=== PATIENT | male | born 1950 | race Caucasian/White ===

== ENCOUNTER 2017-03-04 11:50 | Inpatient (IN) | payer MEDICAID, OTHER ==
[2017-03-04 16:40] LABS: BASOPHILS # (AUTO) 0.1 X10^3/uL (0.0-0.1); BASOPHILS % (AUTO) 0.8 % (0.2-1.0); EOSINOPHILS # (AUTO) 0.5 x10^3/uL (0.0-0.2); EOSINOPHILS % (AUTO) 2.8 % (0.9-2.9); HEMATOCRIT 28.8 % (42.0-54.0); HEMOGLOBIN 9.8 g/dL (13.5-18.0); LYMPHOCYTES # (AUTO) 2.5 X10^3/uL (1.3-2.9); LYMPHOCYTES % (AUTO) 15.1 % (21.0-51.0); MEAN CORPUSCULAR VOLUME 88.4 fL (80.0-100.0); MONOCYTES # (AUTO) 1.8 x10^3/uL (0.3-0.8); MONOCYTES % (AUTO) 10.6 % (0.0-13.0); NEUTROPHILS # (AUTO) 11.8 x10^3/uL (2.2-4.8); NEUTROPHILS % (AUTO) 70.7 % (42.0-75.0); PLATELET COUNT 241 X10^3/uL (150.0-450.0); RED BLOOD COUNT 3.26 X10^6/uL (4.7-6.0); RED CELL DISTRIBUTION WIDTH 15.2 % (11.6-16.5)
[2017-03-04 16:50] LABS: ALANINE AMINOTRANSFERASE 65 Units/L (12-78); ALKALINE PHOSPHATASE 57 Units/L (46-116); ASPARTATE AMINO TRANSFERASE 86 Units/L (15-37); BLOOD UREA NITROGEN 57 mg/dL (7-18); CALCIUM 8.8 mg/dL (8.5-10.1); CARBON DIOXIDE 22.8 mmol/L (21-32); CHLORIDE 104 mmol/L (98-107); COR CA(FOR HYPOALB) 9.6 mg/dL (8.5-10.1); CREATININE 2.89 mg/dL (0.70-1.30); GLUCOSE 108 mg/dL (65-99); SODIUM 137 mmol/L (136-145); TOTAL PROTEIN 7.7 g/dL (6.4-8.2); eGFR BLACK RACES 28 (>60); eGFR NON BLACK RACES 23 (>60)
[2017-03-04 17:02] VITALS: BMI 39.6
[2017-03-04] MEDS: NS 1000 ML 1,000 ML IV SCH (17:02)
[2017-03-04 17:11] LABS: HYPOCHROMASIA 1+; MICROCYTOSIS 1+; PLATELET MORPHOLOGY COMMENT NORMAL (NORMAL)
[2017-03-04 17:13] LABS: WHITE BLOOD COUNT 20.1 X10^3/uL (3.6-10.0)
--- NOTE | 2017-03-04 17:27 | RAD ---
HISTORY: Congestion, cough Study: Single view chest Comparison: 11/07/2015 Findings: Single portable view is submitted, limited by patient rotation. Lung volumes are reduced. The lungs are clear without consolidation, effusion or pneumothorax. The cardiac and mediastinal contours are within normal limits. The soft tissues are unremarkable. IMPRESSION: 1. Negative portable chest radiograph. Reported By:
[2017-03-04] MEDS ORDERED: DUONEB 0.5 MG/3 MG NEB PRN (17:37)
[2017-03-04] MEDS ORDERED: PROVENTIL NEB TX 0.083% 2.5MG/ 3ML NEB PRN (17:54)
[2017-03-04] MEDS: LEVAQUIN PREMIX IV 500 MG 500 MG/100 ML BAG IV SCH (18:13)
[2017-03-04] MEDS: DUONEB 0.5 MG/3 MG NEB SCH (18:17)
[2017-03-04] MEDS: PHENOBARBITAL TAB 30 MG (32.4MG) PO SCH (20:19)
[2017-03-04] MEDS: NAMENDA TAB 10 MG PO SCH (20:19)
[2017-03-04] MEDS: ZITHROMAX INJ 500 MG VIAL 500 MG in NS 250 ML IV 250 ML IV SCH (20:19)
[2017-03-05] MEDS: DUONEB 0.5 MG/3 MG NEB SCH ×4 (00:50→17:28)
[2017-03-05] MEDS: NS 1000 ML 1,000 ML IV SCH ×3 (05:59→22:28)
[2017-03-05 06:00] LABS: BILIRUBIN,URINE NEGATIVE (NEGATIVE); BLOOD/HEMOGLOBIN,URINE 3+ (NEGATIVE); GLUCOSE, URINE NEGATIVE (NEGATIVE); KETONES,URINE NEGATIVE (NEGATIVE); LEUKOCYTE ESTERASE ,URINE 3+ (NEGATIVE); NITRITES,URINE NEGATIVE (NEGATIVE); PROTEIN,URINE 2+ (NEGATIVE); UROBILINOGEN,URINE NORMAL (NORMAL)
[2017-03-05 06:12] LABS: APPEARANCE,URINE SLIGHTLY HAZY (CLEAR); BACTERIA,URINE TRACE /HPF (NEGATIVE); COLOR,URINE YELLOW (YELLOW); SQUAMOUS EPITHELIAL CELL,UR FEW /HPF (NEGATIVE)
[2017-03-05 06:13] LABS: OTHER CRYSTALS,URINE MODERATE /HPF (NEGATIVE)
[2017-03-05 06:27] LABS: BASOPHILS # (AUTO) 0.1 X10^3/uL (0.0-0.1); BASOPHILS % (AUTO) 0.9 % (0.2-1.0); EOSINOPHILS # (AUTO) 0.3 x10^3/uL (0.0-0.2); EOSINOPHILS % (AUTO) 2.8 % (0.9-2.9); HEMATOCRIT 28.2 % (42.0-54.0); HEMOGLOBIN 9.6 g/dL (13.5-18.0); LYMPHOCYTES # (AUTO) 1.8 X10^3/uL (1.3-2.9); LYMPHOCYTES % (AUTO) 19.3 % (21.0-51.0); MEAN CORPUSCULAR HEMOGLOBIN 29.8 pg (27.0-34.0); MEAN CORPUSCULAR HGB CONC 33.9 g/dL (33.0-35.0); MEAN CORPUSCULAR VOLUME 87.9 fL (80.0-100.0); MEAN PLATELET VOLUME 8.7 fL (7.4-11.0); MONOCYTES # (AUTO) 1.1 x10^3/uL (0.3-0.8); MONOCYTES % (AUTO) 12.1 % (0.0-13.0); NEUTROPHILS % (AUTO) 64.9 % (42.0-75.0); PLATELET COUNT 296 X10^3/uL (150.0-450.0); RED BLOOD COUNT 3.21 X10^6/uL (4.7-6.0); RED CELL DISTRIBUTION WIDTH 14.6 % (11.6-16.5); WHITE BLOOD COUNT 9.3 X10^3/uL (3.6-10.0)
[2017-03-05 06:58] LABS: ALANINE AMINOTRANSFERASE 53 Units/L (12-78); ALBUMIN 2.6 g/dL (3.4-5.0); ALKALINE PHOSPHATASE 51 Units/L (46-116); ASPARTATE AMINO TRANSFERASE 62 Units/L (15-37); BLOOD UREA NITROGEN 47 mg/dL (7-18); CALCIUM 8.4 mg/dL (8.5-10.1); CARBON DIOXIDE 22.9 mmol/L (21-32); CHLORIDE 108 mmol/L (98-107); COR CA(FOR HYPOALB) 9.5 mg/dL (8.5-10.1); CREATININE 2.26 mg/dL (0.70-1.30); GLUCOSE 105 mg/dL (65-99); SODIUM 140 mmol/L (136-145); eGFR BLACK RACES 37 (>60); eGFR NON BLACK RACES 31 (>60)
[2017-03-05] MEDS: ZITHROMAX INJ 500 MG VIAL 500 MG in NS 250 ML IV 250 ML IV SCH (08:25)
[2017-03-05] MEDS: NAMENDA TAB 10 MG PO SCH ×2 (08:26→20:22)
[2017-03-05] MEDS: PHENOBARBITAL TAB 30 MG (32.4MG) PO SCH ×2 (08:26→20:22)
[2017-03-05] MEDS: LEVAQUIN PREMIX IV 500 MG 500 MG/100 ML BAG IV SCH (08:26)
[2017-03-05] MEDS ORDERED: ULTRAM PO PRN (12:46)
[2017-03-05] MEDS ORDERED: QUETIAPINE FUMARATE PO SCH (13:00)
[2017-03-05] MEDS ORDERED: TAMSULOSIN HCL 0.4 MG PO SCH (13:00)
[2017-03-05] MEDS ORDERED: NAMENDA TAB 10 MG PO SCH (13:00)
[2017-03-05] MEDS ORDERED: TYLENOL 500 MG TAB EXTRA STRENGTH PO SCH (13:00)
[2017-03-05] MEDS ORDERED: CHOLECALCIFEROL 4000 UNIT PO SCH (13:00)
[2017-03-05] MEDS ORDERED: DUONEB 0.5 MG/3 MG NEB SCH (13:00)
[2017-03-05] MEDS ORDERED: ZOLOFT PO ONE (15:21)
[2017-03-05] MEDS: TRICOR TAB 145 MG PO SCH (15:36)
[2017-03-05] MEDS: ZOLOFT PO SCH (15:36)
[2017-03-05] MEDS: SYNTHROID 125 mcg TAB PO SCH (15:36)
[2017-03-05] MEDS: MIRALAX POWDER (1 DOSE 17GM) PO SCH (15:55)
[2017-03-05] MEDS ORDERED: PHENOBARBITAL TAB 30 MG (32.4MG) PO SCH (17:00)
[2017-03-05] MEDS: ZOCOR TAB 10 MG PO SCH (20:22)
[2017-03-05] MEDS: DESYREL PO SCH (20:22)
[2017-03-05] MEDS: FLOMAX PO SCH (20:22)
[2017-03-05] MEDS ORDERED: PATIENT'S HOME MEDICATION (Trazodone Hcl [Trazodone Hcl] 100 MG) PO SCH (21:00)
[2017-03-05] MEDS ORDERED: ZOFRAN INJ 4 MG VIAL IVP PRN (21:14)
[2017-03-06] MEDS ORDERED: ROBITUSSIN DM PO PRN (00:02)
[2017-03-06] MEDS: DUONEB 0.5 MG/3 MG NEB SCH ×4 (00:55→17:01)
[2017-03-06 06:08] LABS: ALBUMIN 2.6 g/dL (3.4-5.0); CALCIUM 8.3 mg/dL (8.5-10.1); COR CA(FOR HYPOALB) 9.4 mg/dL (8.5-10.1); CREATININE 1.68 mg/dL (0.70-1.30); TOTAL PROTEIN 7.1 g/dL (6.4-8.2)
[2017-03-06 06:23] LABS: BASOPHILS # (AUTO) 0.1 X10^3/uL (0.0-0.1); BASOPHILS % (AUTO) 0.5 % (0.2-1.0); EOSINOPHILS # (AUTO) 0.2 x10^3/uL (0.0-0.2); EOSINOPHILS % (AUTO) 1.9 % (0.9-2.9); HEMATOCRIT 27.6 % (42.0-54.0); HEMOGLOBIN 9.5 g/dL (13.5-18.0); LYMPHOCYTES # (AUTO) 1.3 X10^3/uL (1.3-2.9); LYMPHOCYTES % (AUTO) 13.3 % (21.0-51.0); MEAN CORPUSCULAR HEMOGLOBIN 30.2 pg (27.0-34.0); MEAN CORPUSCULAR HGB CONC 34.5 g/dL (33.0-35.0); MEAN CORPUSCULAR VOLUME 87.4 fL (80.0-100.0); MEAN PLATELET VOLUME 9.4 fL (7.4-11.0); MONOCYTES # (AUTO) 0.9 x10^3/uL (0.3-0.8); MONOCYTES % (AUTO) 9.7 % (0.0-13.0); NEUTROPHILS # (AUTO) 7.3 x10^3/uL (2.2-4.8); NEUTROPHILS % (AUTO) 74.6 % (42.0-75.0); PLATELET COUNT 334 X10^3/uL (150.0-450.0); RED BLOOD COUNT 3.16 X10^6/uL (4.7-6.0); RED CELL DISTRIBUTION WIDTH 15.1 % (11.6-16.5); WHITE BLOOD COUNT 9.8 X10^3/uL (3.6-10.0)
[2017-03-06 06:54] LABS: PLATELET MORPHOLOGY COMMENT NORMAL (NORMAL)
[2017-03-06] MEDS: NS 1000 ML 1,000 ML IV SCH ×3 (07:18→22:29)
[2017-03-06] MEDS ORDERED: ZOLOFT PO ONE (08:10)
[2017-03-06] MEDS: MIRALAX POWDER (1 DOSE 17GM) PO SCH (08:34)
[2017-03-06] MEDS: NAMENDA TAB 10 MG PO SCH ×2 (08:34→21:17)
[2017-03-06] MEDS: LEVAQUIN PREMIX IV 500 MG 500 MG/100 ML BAG IV SCH (08:34)
[2017-03-06] MEDS: FLOMAX PO SCH ×2 (08:34→21:17)
[2017-03-06] MEDS: ZITHROMAX INJ 500 MG VIAL 500 MG in NS 250 ML IV 250 ML IV SCH (08:35)
[2017-03-06] MEDS: VITAMIN D3 PO SCH (08:35)
[2017-03-06] MEDS: SYNTHROID 125 mcg TAB PO SCH (08:35)
[2017-03-06] MEDS: TRICOR TAB 145 MG PO SCH (08:35)
[2017-03-06] MEDS: PHENOBARBITAL TAB 30 MG (32.4MG) PO SCH ×2 (08:35→21:17)
[2017-03-06] MEDS: ZOLOFT PO SCH (08:36)
[2017-03-06] MEDS ORDERED: BUTT CREAM (COMPOUND) TOP PRN (12:35)
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
--- NOTE | 2017-03-06 14:09 | PCM.PROG ---
Progress Note - Progress Note for Day of Date: 03/05/17 - Subjective Subjective: MORE AWAKE AND ALERT, PT CO SUPRAPUBIC TENDERNESS. STATES HE'S "PEEING OK". CONTINUED DIFFUSE WHEEZES, WILL CONTINUE IV ATBX, RESP THERAPY. REPEAT AM LABS - Past Medical Family Social History Past Med/Fam/Surg Hx: No changes since H&P Allergies: Allergies No Known Drug Allergies Allergy (Verified 03/04/17 15:54) - Review of Systems ROS: No change since H&P ( DICTATED BY) - Vital Signs and I&O's Vital Signs: Temperature 97.9 F Pulse Rate [Radial] 70 Pulse Rate 76 Respiratory Rate 20 Blood Pressure [Left Arm] 188/79 Blood Pressure [Right Arm] 123/60 Blood Pressure 119/60 O2 Sat by Pulse Oximetry 96 Intake and Output: Intake & Output 03/04/17 03/05/17 03/06/17 03/07/17 11:59 11:59 11:59 11:59 Intake Total 200 1155 Output Total 300 Balance 200 855 - Physical Exam Oriented: Person Eyes: Normal Ear: Normal Nose: Normal Throat: Normal Cardiovascular: Normal : Normal Auscultation: Bowel Sounds: Normal Tenderness: Normal, Suprapubic Musculoskeletal: Back:Lumbar, Motor Deficit, Sensory Deficit Mood Description: Calm Speech Pattern: Clear, Appropriate - Laboratory and Diagnostics Result Diagrams: 03/06/17 03:45 03/06/17 03:45 Labs: 03/04/17 16:18 Blood Blood Culture - Preliminary 03/04/17 16:18 Blood Blood Culture - Preliminary 03/05/17 05:35 Urine,Clean Catch Urine Culture - Preliminary 03/04/17 18:28 Sputum - Expectorated Sputum Sputum Culture - Final 03/04/17 18:28 Sputum - Expectorated Sputum - Final Laboratory WBC 9.8 X10^3/uL (3.6-10.0) 03/06/17 03:45 RBC 3.16 X10^6/uL (4.7-6.0) L 03/06/17 03:45 Hgb 9.5 g/dL (13.5-18.0) L 03/06/17 03:45 Hct 27.6 % (42.0-54.0) L 03/06/17 03:45 MCV 87.4 fL (80.0-100.0) 03/06/17 03:45 MCH 30.2 pg (27.0-34.0) 03/06/17 03:45 MCHC 34.5 g/dL (33.0-35.0) 03/06/17 03:45 RDW 15.1 % (11.6-16.5) 03/06/17 03:45 Plt Count 334 X10^3/uL (150.0-450.0) 03/06/17 03:45 Plt Count Comment Adequate (ADEQUATE) 03/06/17 03:45 MPV 9.4 fL (7.4-11.0) 03/06/17 03:45 Neut % 74.6 % (42.0-75.0) 03/06/17 03:45 Lymph % 13.3 % (21.0-51.0) L 03/06/17 03:45 [place] % 9.7 % (0.0-13.0) 03/06/17 03:45 Eos % 1.9 % (0.9-2.9) 03/06/17 03:45 Baso % 0.5 % (0.2-1.0) 03/06/17 03:45 Neut # 7.3 x10^3/uL (2.2-4.8) H 03/06/17 03:45 Lymph # 1.3 X10^3/uL (1.3-2.9) 03/06/17 03:45 [place] # 0.9 x10^3/uL (0.3-0.8) H 03/06/17 03:45 Eos # 0.2 x10^3/uL (0.0-0.2) 03/06/17 03:45 Baso # 0.1 X10^3/uL (0.0-0.1) 03/06/17 03:45 Absolute Nucleated RBC 0.0 /100WBC 03/06/17 03:45 Total Counted 100 03/06/17 03:45 Neutrophils % (Manual) 73 % (39-76) 03/06/17 03:45 Lymphocytes % (Manual) 22 % (13-43) 03/06/17 03:45 Monocytes % (Manual) 5 % (4-9) 03/06/17 03:45 Plt Morphology Comment Normal (NORMAL) 03/06/17 03:45 RBC Morphology Normal (NORMAL) 03/06/17 03:45 Hypochromasia 1+ A 03/04/17 16:18 Microcytosis 1+ A 03/04/17 16:18 Sodium 141 mmol/L (136-145) 03/06/17 03:45 Corrected Sodium 142 mmol/L (136-145) 03/06/17 03:45 Potassium 3.9 mmol/L (3.5-5.1) 03/06/17 03:45 Chloride 107 mmol/L (98-107) 03/06/17 03:45 Carbon Dioxide 25.0 mmol/L (21-32) 03/06/17 03:45 BUN 28 mg/dL (7-18) H 03/06/17 03:45 Creatinine 1.68 mg/dL (0.70-1.30) H 03/06/17 03:45 Est GFR (MDRD) Af Amer 53 (>60) L 03/06/17 03:45 Est GFR (MDRD) Non-Af 44 (>60) L 03/06/17 03:45 Glucose 136 mg/dL (65-99) H 03/06/17 03:45 Calcium 8.3 mg/dL (8.5-10.1) L 03/06/17 03:45 Corrected Calcium 9.4 mg/dL (8.5-10.1) 03/06/17 03:45 Total Bilirubin 0.40 mg/dL (0.2-1.0) 03/06/17 03:45 AST 49 Units/L (15-37) H 03/06/17 03:45 ALT 49 Units/L (12-78) 03/06/17 03:45 Alkaline Phosphatase 51 Units/L (46-116) 03/06/17 03:45 Total Protein 7.1 g/dL (6.4-8.2) 03/06/17 03:45 Albumin 2.6 g/dL (3.4-5.0) L 03/06/17 03:45 Globulin 4.5 g/dL (2.5-4.5) 03/06/17 03:45 Albumin/Globulin Ratio 0.6 Ratio (1.1-2.1) L 03/06/17 03:45 Specimen Type Clean catch urine 03/05/17 05:35 Urine Color Yellow (YELLOW) 03/05/17 05:35 Urine Appearance Slightly hazy (CLEAR) 03/05/17 05:35 Urine pH 6.0 (5.0 - 8.0) 03/05/17 05:35 Ur Specific [place] 1.010 (1.000-1.030) 03/05/17 05:35 Urine Protein 2+ (NEGATIVE) 03/05/17 05:35 Urine Glucose (UA) Negative (NEGATIVE) 03/05/17 05:35 Urine Ketones Negative (NEGATIVE) 03/05/17 05:35 Urine Occult Blood 3+ (NEGATIVE) 03/05/17 05:35 Urine Nitrite Negative (NEGATIVE) 03/05/17 05:35 Urine Bilirubin Negative (NEGATIVE) 03/05/17 05:35 Urine Urobilinogen Normal (NORMAL) 03/05/17 05:35 Ur Leukocyte Esterase 3+ (NEGATIVE) 03/05/17 05:35 Urine RBC 5-10 /HPF (NEGATIVE) 03/05/17 05:35 Urine WBC 25-30 /HPF (NEGATIVE) 03/05/17 05:35 Ur Squamous Epith Cells Few /HPF (NEGATIVE) 03/05/17 05:35 Other Crystals Moderate /HPF (NEGATIVE) 03/05/17 05:35 Urine Bacteria Trace /HPF (NEGATIVE) 03/05/17 05:35 Ur Culture Indicated? Yes/culture set up 03/05/17 05:35 - Plan (1) Altered mental state Status: Acute Plan: IMPROVING MENTAL STATUS, MORE AWAKE AND ALERT. WILL CONTINUE IV HYDRATION TO CORRECT RENAL INSUFF. REPEAT AM LABS (2) Renal insufficiency Status: Chronic Plan: REPEAT CMP, I & OS (3) COPD (chronic obstructive pulmonary disease) with acute bronchitis Status: Acute Plan: RESP, IV ATBX (4) Dehydration Status: Acute (5) Hyperlipidemia Status: Chronic Qualifiers: Hyperlipidemia type: Mixed hyperlipidemia Qualified Code(s): E78.2 - Mixed hyperlipidemia (6) Schizophrenia Status: Chronic (7) Suprapubic abdominal pain Status: Acute Plan: CONTINUE IV ATBX FOR UTI, CT ABD PELVIS W/O CONTRAST (8) UTI (urinary tract infection) Status: Acute Plan: IV ATBX
--- NOTE | 2017-03-06 17:29 | PCM.PROG ---
Progress Note - Progress Note for Day of Date: 03/06/17 - Subjective Subjective: improving renal function, urine culture results pending. ct abd pelvis ordered today, will continue resp therapy. iv atbx and gentle iv hydration - Past Medical Family Social History Past Med/Fam/Surg Hx: No changes since H&P Allergies: Allergies No Known Drug Allergies Allergy (Verified 03/04/17 15:54) - Review of Systems ROS: No change since H&P ( DICTATED BY) - Vital Signs and I&O's Vital Signs: Temperature 98.7 F Pulse Rate [Radial] 72 Pulse Rate 76 Respiratory Rate 20 Blood Pressure [Left Arm] 136/67 Blood Pressure [Right Arm] 123/60 Blood Pressure 119/60 O2 Sat by Pulse Oximetry 95 Intake and Output: Intake & Output 03/04/17 03/05/17 03/06/17 03/07/17 11:59 11:59 11:59 11:59 Intake Total 200 1155 600 Output Total 300 Balance 200 855 600 - Physical Exam Oriented: Person Eyes: Normal Ear: Normal Nose: Normal Throat: Normal Cardiovascular: Normal : Normal Auscultation: Bowel Sounds: Normal Tenderness: Normal, Suprapubic Musculoskeletal: Back:Lumbar, Motor Deficit, Sensory Deficit Mood Description: Calm Speech Pattern: Clear, Appropriate - Laboratory and Diagnostics Result Diagrams: 03/06/17 03:45 03/06/17 03:45 Labs: 03/04/17 16:18 Blood Blood Culture - Preliminary 03/04/17 16:18 Blood Blood Culture - Preliminary 03/05/17 05:35 Urine,Clean Catch Urine Culture - Preliminary 03/04/17 18:28 Sputum - Expectorated Sputum Sputum Culture - Final 03/04/17 18:28 Sputum - Expectorated Sputum - Final Laboratory WBC 9.8 X10^3/uL (3.6-10.0) 03/06/17 03:45 RBC 3.16 X10^6/uL (4.7-6.0) L 03/06/17 03:45 Hgb 9.5 g/dL (13.5-18.0) L 03/06/17 03:45 Hct 27.6 % (42.0-54.0) L 03/06/17 03:45 MCV 87.4 fL (80.0-100.0) 03/06/17 03:45 MCH 30.2 pg (27.0-34.0) 03/06/17 03:45 MCHC 34.5 g/dL (33.0-35.0) 03/06/17 03:45 RDW 15.1 % (11.6-16.5) 03/06/17 03:45 Plt Count 334 X10^3/uL (150.0-450.0) 03/06/17 03:45 Plt Count Comment Adequate (ADEQUATE) 03/06/17 03:45 MPV 9.4 fL (7.4-11.0) 03/06/17 03:45 Neut % 74.6 % (42.0-75.0) 03/06/17 03:45 Lymph % 13.3 % (21.0-51.0) L 03/06/17 03:45 [place] % 9.7 % (0.0-13.0) 03/06/17 03:45 Eos % 1.9 % (0.9-2.9) 03/06/17 03:45 Baso % 0.5 % (0.2-1.0) 03/06/17 03:45 Neut # 7.3 x10^3/uL (2.2-4.8) H 03/06/17 03:45 Lymph # 1.3 X10^3/uL (1.3-2.9) 03/06/17 03:45 [place] # 0.9 x10^3/uL (0.3-0.8) H 03/06/17 03:45 Eos # 0.2 x10^3/uL (0.0-0.2) 03/06/17 03:45 Baso # 0.1 X10^3/uL (0.0-0.1) 03/06/17 03:45 Absolute Nucleated RBC 0.0 /100WBC 03/06/17 03:45 Total Counted 100 03/06/17 03:45 Neutrophils % (Manual) 73 % (39-76) 03/06/17 03:45 Lymphocytes % (Manual) 22 % (13-43) 03/06/17 03:45 Monocytes % (Manual) 5 % (4-9) 03/06/17 03:45 Plt Morphology Comment Normal (NORMAL) 03/06/17 03:45 RBC Morphology Normal (NORMAL) 03/06/17 03:45 Hypochromasia 1+ A 03/04/17 16:18 Microcytosis 1+ A 03/04/17 16:18 Sodium 141 mmol/L (136-145) 03/06/17 03:45 Corrected Sodium 142 mmol/L (136-145) 03/06/17 03:45 Potassium 3.9 mmol/L (3.5-5.1) 03/06/17 03:45 Chloride 107 mmol/L (98-107) 03/06/17 03:45 Carbon Dioxide 25.0 mmol/L (21-32) 03/06/17 03:45 BUN 28 mg/dL (7-18) H 03/06/17 03:45 Creatinine 1.68 mg/dL (0.70-1.30) H 03/06/17 03:45 Est GFR (MDRD) Af Amer 53 (>60) L 03/06/17 03:45 Est GFR (MDRD) Non-Af 44 (>60) L 03/06/17 03:45 Glucose 136 mg/dL (65-99) H 03/06/17 03:45 Calcium 8.3 mg/dL (8.5-10.1) L 03/06/17 03:45 Corrected Calcium 9.4 mg/dL (8.5-10.1) 03/06/17 03:45 Total Bilirubin 0.40 mg/dL (0.2-1.0) 03/06/17 03:45 AST 49 Units/L (15-37) H 03/06/17 03:45 ALT 49 Units/L (12-78) 03/06/17 03:45 Alkaline Phosphatase 51 Units/L (46-116) 03/06/17 03:45 Total Protein 7.1 g/dL (6.4-8.2) 03/06/17 03:45 Albumin 2.6 g/dL (3.4-5.0) L 03/06/17 03:45 Globulin 4.5 g/dL (2.5-4.5) 03/06/17 03:45 Albumin/Globulin Ratio 0.6 Ratio (1.1-2.1) L 03/06/17 03:45 Specimen Type Clean catch urine 03/05/17 05:35 Urine Color Yellow (YELLOW) 03/05/17 05:35 Urine Appearance Slightly hazy (CLEAR) 03/05/17 05:35 Urine pH 6.0 (5.0 - 8.0) 03/05/17 05:35 Ur Specific [place] 1.010 (1.000-1.030) 03/05/17 05:35 Urine Protein 2+ (NEGATIVE) 03/05/17 05:35 Urine Glucose (UA) Negative (NEGATIVE) 03/05/17 05:35 Urine Ketones Negative (NEGATIVE) 03/05/17 05:35 Urine Occult Blood 3+ (NEGATIVE) 03/05/17 05:35 Urine Nitrite Negative (NEGATIVE) 03/05/17 05:35 Urine Bilirubin Negative (NEGATIVE) 03/05/17 05:35 Urine Urobilinogen Normal (NORMAL) 03/05/17 05:35 Ur Leukocyte Esterase 3+ (NEGATIVE) 03/05/17 05:35 Urine RBC 5-10 /HPF (NEGATIVE) 03/05/17 05:35 Urine WBC 25-30 /HPF (NEGATIVE) 03/05/17 05:35 Ur Squamous Epith Cells Few /HPF (NEGATIVE) 03/05/17 05:35 Other Crystals Moderate /HPF (NEGATIVE) 03/05/17 05:35 Urine Bacteria Trace /HPF (NEGATIVE) 03/05/17 05:35 Ur Culture Indicated? Yes/culture set up 03/05/17 05:35 - Plan (1) Altered mental state Status: Acute Plan: IMPROVING MENTAL STATUS, MORE AWAKE AND ALERT. WILL CONTINUE IV HYDRATION TO CORRECT RENAL INSUFF. REPEAT AM LABS (2) Renal insufficiency Status: Chronic Plan: REPEAT CMP, I & OS (3) COPD (chronic obstructive pulmonary disease) with acute bronchitis Status: Acute Plan: RESP, IV ATBX (4) Dehydration Status: Acute (5) Hyperlipidemia Status: Chronic Qualifiers: Hyperlipidemia type: Mixed hyperlipidemia Qualified Code(s): E78.2 - Mixed hyperlipidemia (6) Schizophrenia Status: Chronic (7) Suprapubic abdominal pain Status: Acute Plan: CONTINUE IV ATBX FOR UTI, CT ABD PELVIS W/O CONTRAST (8) UTI (urinary tract infection) Status: Acute Plan: IV ATBX
--- NOTE | 2017-03-06 19:38 | CT ---
CT abdomen and pelvis without contrast Indication: Acute kidney failure, suprapubic pain, UTI Comparison: None Technique: CT images of the abdomen and pelvis were obtained without contrast. Automatic exposure con trol was utilized. Findings: There is basilar right lower lobe airspace disease. The left lung base is grossly clear. No aggressive osseous lesion is seen. There is mild gallbladder distention with wall thickening associated with a least 2 peripherally calc ified stones at or near the gallbladder neck. Within noncontrast limitations, the liver, spleen, stom ach, duodenum, pancreas, and adrenals are unremarkable. There are multiple bilateral renal stones, me asuring up to 1.1 cm on the right and 0.8 cm on the left. There is mild right-sided hydroureteronephr osis associated with a 4 mm calculus in the proximal ureter at the L3-4 level. An additional 7 mm cinthya culus is seen at or just beyond the right ureterovesicular junction, although the more distal ureter is only minimally dilated. No left-sided hydronephrosis or left ureteral stone. There is mild urinary bladder thickening. No significant bowel thickening or dilatation of the lower GI tract is seen. The prostate and rectum are unremarkable. There is aortoiliac atherosclerosis without aneurysm. No free fluid or adenopathy i dentified. Impression: 1. Mild right-sided hydroureteronephrosis associated with a 4 mm proximal ureteral stone. There is an additional 7 mm stone at or just beyond the right UVJ, with minimal dilatation of the more distal ur eter. Urinary bladder thickening, suggesting cystitis. 2. Bilateral nephrolithiasis. No left-sided hydronephrosis or left ureteral stone. 3. Stones within the gallbladder neck with associated mild gallbladder distention and wall thickening . Recommend right upper quadrant ultrasound if there is clinical concern for cholecystitis. 4. Basilar right lower lobe airspace disease, suggesting atelectasis or pneumonitis. Correlation fatuma mmended. Reported By:
[2017-03-06] MEDS: ROCEPHIN VIAL 1 GM 1 GM in NS 50 ML IV + SPIKE MINIBAG* 50 ML IV SCH (21:15)
[2017-03-06] MEDS: ZOCOR TAB 10 MG PO SCH (21:17)
[2017-03-06] MEDS: DESYREL PO SCH (21:17)
[2017-03-07] MEDS: DUONEB 0.5 MG/3 MG NEB SCH ×5 (00:20→18:01)
[2017-03-07 05:53] LABS: BASOPHILS % (AUTO) 0.4 % (0.2-1.0); EOSINOPHILS # (AUTO) 0.3 x10^3/uL (0.0-0.2); EOSINOPHILS % (AUTO) 2.6 % (0.9-2.9); HEMATOCRIT 27.7 % (42.0-54.0); HEMOGLOBIN 9.6 g/dL (13.5-18.0); LYMPHOCYTES # (AUTO) 1.5 X10^3/uL (1.3-2.9); LYMPHOCYTES % (AUTO) 14.3 % (21.0-51.0); MEAN CORPUSCULAR HGB CONC 34.4 g/dL (33.0-35.0); MEAN CORPUSCULAR VOLUME 87.1 fL (80.0-100.0); MEAN PLATELET VOLUME 8.7 fL (7.4-11.0); MONOCYTES # (AUTO) 1.2 x10^3/uL (0.3-0.8); NEUTROPHILS # (AUTO) 7.7 x10^3/uL (2.2-4.8); NEUTROPHILS % (AUTO) 71.7 % (42.0-75.0); PLATELET COUNT 371 X10^3/uL (150.0-450.0); RED BLOOD COUNT 3.19 X10^6/uL (4.7-6.0); RED CELL DISTRIBUTION WIDTH 14.8 % (11.6-16.5); WHITE BLOOD COUNT 10.8 X10^3/uL (3.6-10.0)
[2017-03-07 06:00] LABS: ALANINE AMINOTRANSFERASE 37 Units/L (12-78); ALBUMIN 2.4 g/dL (3.4-5.0); ALKALINE PHOSPHATASE 47 Units/L (46-116); ASPARTATE AMINO TRANSFERASE 33 Units/L (15-37); BLOOD UREA NITROGEN 19 mg/dL (7-18); CALCIUM 8.2 mg/dL (8.5-10.1); CHLORIDE 107 mmol/L (98-107); COR CA(FOR HYPOALB) 9.5 mg/dL (8.5-10.1); CREATININE 1.48 mg/dL (0.70-1.30); GLUCOSE 110 mg/dL (65-99); SODIUM 142 mmol/L (136-145); TOTAL PROTEIN 6.9 g/dL (6.4-8.2); eGFR BLACK RACES > 60 (>60); eGFR NON BLACK RACES 50 (>60)
[2017-03-07] MEDS: ZOLOFT PO SCH (09:01)
[2017-03-07] MEDS: PHENOBARBITAL TAB 30 MG (32.4MG) PO SCH (09:02)
[2017-03-07] MEDS: SYNTHROID 125 mcg TAB PO SCH (09:02)
[2017-03-07] MEDS: NAMENDA TAB 10 MG PO SCH (09:02)
[2017-03-07] MEDS: TRICOR TAB 145 MG PO SCH (09:02)
[2017-03-07] MEDS: VITAMIN D3 PO SCH (09:02)
[2017-03-07] MEDS: MIRALAX POWDER (1 DOSE 17GM) PO SCH (09:03)
[2017-03-07] MEDS: FLOMAX PO SCH (09:03)
[2017-03-07] MEDS: LEVAQUIN PREMIX IV 500 MG 500 MG/100 ML BAG IV SCH (09:23)
[2017-03-07] MEDS: ROCEPHIN VIAL 1 GM 1 GM in NS 50 ML IV + SPIKE MINIBAG* 50 ML IV SCH (09:24)
[2017-03-07] MEDS: ZITHROMAX INJ 500 MG VIAL 500 MG in NS 250 ML IV 250 ML IV SCH (09:24)
[2017-03-07] MEDS: NS 1000 ML 1,000 ML IV SCH ×2 (09:28→18:23)
[2017-03-07 16:56] VITALS: BP 145/74
[2017-03-07 17:57] LABS: BASOPHILS # (AUTO) 0.1 X10^3/uL (0.0-0.1); BASOPHILS % (AUTO) 0.6 % (0.2-1.0); EOSINOPHILS # (AUTO) 0.3 x10^3/uL (0.0-0.2); EOSINOPHILS % (AUTO) 2.2 % (0.9-2.9); HEMATOCRIT 28.9 % (42.0-54.0); HEMOGLOBIN 9.8 g/dL (13.5-18.0); LYMPHOCYTES # (AUTO) 1.6 X10^3/uL (1.3-2.9); LYMPHOCYTES % (AUTO) 14.2 % (21.0-51.0); MEAN CORPUSCULAR HEMOGLOBIN 29.7 pg (27.0-34.0); MEAN CORPUSCULAR VOLUME 87.4 fL (80.0-100.0); MEAN PLATELET VOLUME 8.2 fL (7.4-11.0); MONOCYTES # (AUTO) 1.2 x10^3/uL (0.3-0.8); MONOCYTES % (AUTO) 10.3 % (0.0-13.0); NEUTROPHILS # (AUTO) 8.4 x10^3/uL (2.2-4.8); NEUTROPHILS % (AUTO) 72.7 % (42.0-75.0); PLATELET COUNT 402 X10^3/uL (150.0-450.0); RED BLOOD COUNT 3.31 X10^6/uL (4.7-6.0); RED CELL DISTRIBUTION WIDTH 14.3 % (11.6-16.5); WHITE BLOOD COUNT 11.5 X10^3/uL (3.6-10.0)
[2017-03-07 18:08] LABS: ALANINE AMINOTRANSFERASE 36 Units/L (12-78); ALBUMIN 2.6 g/dL (3.4-5.0); ALKALINE PHOSPHATASE 51 Units/L (46-116); ASPARTATE AMINO TRANSFERASE 32 Units/L (15-37); BLOOD UREA NITROGEN 19 mg/dL (7-18); CALCIUM 8.9 mg/dL (8.5-10.1); CARBON DIOXIDE 25.9 mmol/L (21-32); CHLORIDE 105 mmol/L (98-107); CREATININE 1.42 mg/dL (0.70-1.30); GLUCOSE 104 mg/dL (65-99); SODIUM 140 mmol/L (136-145); TOTAL PROTEIN 7.2 g/dL (6.4-8.2); eGFR BLACK RACES > 60 (>60); eGFR NON BLACK RACES 53 (>60)
--- NOTE | 2017-03-07 18:37 | US ---
HISTORY: 66-year-old male with right upper quadrant pain and fever. Study: Right upper quadrant abdominal ultrasound Comparison: CT abdomen and pelvis March 06, 2017 Technique: Multiple burrows scale and color flow Doppler images of the right upper quadrant were obtaine d. Findings: The liver is normal in echotexture and size. No focal intraparenchymal mass or intrahepatic biliary ductal dilatation can be observed. 2 cm echogenic shadowing stone within the neck of the gallbladder with gallbladder wall measuring 0.6 cm and common bile duct measuring 0.5 cm. There is no hyperemia of the gallbladder wall or pericholecystic fluid. The right kidney appears normal in size without focal parenchymal mass or nephrolithiasis. The right kidney measurers 11.4 cm. No hydronephrosis or perirenal fluid can be observed. The pancreatic hea d and body are unremarkable. The pancreatic tail is largely obscured by overlying bowel gas. IMPRESSION: 1. Cholelithiasis with findings most consistent with chronic cholecystitis without pericholecystic f luid or hyperemia of the mildly thickened gallbladder wall. Correlate with serology. Reported By:
== END 2017-03-07 19:10 | disposition short-term general hospital (02) | DRG 948 ==
LOC: MED/SURG 11:50
PROVIDERS: ADMIT Internal Medicine; ATTEND Internal Medicine
DX: R41.82 Altered mental status, unspecified (principal); N17.9 Acute kidney failure, unspecified; N18.9 Chronic kidney disease, unspecified; K80.00 Calculus of gallbladder with acute cholecystitis without obstruction; J44.0 Chronic obstructive pulmonary disease with (acute) lower respiratory infection; J20.9 Acute bronchitis, unspecified; E86.0 Dehydration; E78.5 Hyperlipidemia, unspecified; F20.9 Schizophrenia, unspecified; N39.0 Urinary tract infection, site not specified; N13.8 Other obstructive and reflux uropathy; Z87.440 Personal history of urinary (tract) infections; F03.90 Unspecified dementia, unspecified severity, without behavioral disturbance, psychotic disturbance, mood disturbance, and anxiety; N20.0 Calculus of kidney
CPT/HCPCS: 36415; 71010; 74176; 76705; 80053; 81001; 85025; 87040; 87070; 87086; 87205; 94640; 94760; A4216; A4222; J0456; J0696; J1956; J2405; J7620

== ENCOUNTER 2020-02-25 15:55 | Inpatient (IN) ==
[2020-02-25] MEDS ORDERED: REMDESIVIR (INVESTIGATIONAL DRUG GS-5734) 200 MG in NS 250 ML IV 250 ML IV SCH ×2 (16:19→18:16)
[2020-02-25] MEDS ORDERED: ZITHROMAX INJ 500 MG VIAL 500 MG in NS 250 ML IV 250 ML IV SCH (16:20)
[2020-02-25] MEDS ORDERED: PLAQUENIL PO STA (16:22)
[2020-02-25 16:38] LABS: ABG BASE EXCESS -3.3 mmol/L (-2.0-2.0); ABG HCO3 22.1 mmol/L (22-26)
[2020-02-25 16:39] LABS: ABG ALLEN TEST POS
--- NOTE | 2020-02-25 16:50 | RAD ---
HISTORYPOSITIVE COVID hypoxiaSTUDYCHEST, 1 VIEWCOMPARISONNoneFINDINGSThe trachea is midline. The cardiac silhouette is unremarkable . The lungs are clear without focal infiltrate or effusion. There is an interstitial pattern in both upper lung leblanc but without old films I cannot tell if this is fibrosis or interstitial pneumonitis. No areas of consolidation pneumothorax are observed there is no effusion. The bony thorax is unremarkable.IMPRESSIONBilateral upper lobe interstitial pattern with no old films for comparison..Electronically signed by: ERIKA ALFARO (Feb 25, 2020 16:49:47)
[2020-02-25] MEDS ORDERED: XOPENEX 1.25 MG/3 ML NEBULE NEB SCH (17:00)
[2020-02-25] MEDS ORDERED: NS 1000 ML 1,000 ML IV SCH (17:00)
[2020-02-25] MEDS ORDERED: ZOSYN VIAL 4.5 GRAMS 4.5 G in NS 100 ML IV + SPIKE MINIBAG* 100 ML IV SCH (17:00)
[2020-02-25 17:15] LABS: BASOPHILS % (AUTO) 0.4 % (0.2-1.0); EOSINOPHILS % (AUTO) 0.1 % (0.9-2.9); HEMATOCRIT 28.9 % (42.0-54.0); HEMOGLOBIN 9.4 g/dL (13.5-18.0); MEAN CORPUSCULAR HEMOGLOBIN 29.3 pg (27.0-34.0); MEAN CORPUSCULAR HGB CONC 32.5 g/dL (33.0-35.0); MEAN CORPUSCULAR VOLUME 90.2 fL (80.0-100.0); MEAN PLATELET VOLUME 8.5 fL (7.4-11.0); MONOCYTES # (AUTO) 0.3 x10^3/uL (0.3-0.8); MONOCYTES % (AUTO) 5.9 % (0.0-13.0); NEUTROPHILS # (AUTO) 4.1 x10^3/uL (2.2-4.8); NEUTROPHILS % (AUTO) 75.6 % (42.0-75.0); PLATELET COUNT 218 X10^3/uL (150.0-450.0); RED CELL DISTRIBUTION WIDTH 14.4 % (11.6-16.5); WHITE BLOOD COUNT 5.5 X10^3/uL (3.6-10.0)
[2020-02-25 17:24] LABS: CALCIUM 7.8 mg/dL (8.5-10.1); CARBON DIOXIDE 24.1 mmol/L (21-32); COR CA(FOR HYPOALB) 8.6 mg/dL (8.5-10.1); CREATININE 2.4 mg/dL (0.70-1.30); TOTAL PROTEIN 7.1 g/dL (6.4-8.2)
[2020-02-25] MEDS: SOLU-Medrol 125 MG VIAL IVP SCH ×2 (17:28→20:59)
[2020-02-25] MEDS: XOPENEX 1.25 MG/3 ML NEBULE NEB SCH ×2 (17:30→23:25)
[2020-02-25] MEDS: MUCOMYST (RESPIRATORY USE ONLY) NEB SCH ×3 (17:30→23:25)
[2020-02-25] MEDS: PULMICORT NEB TX 0.5 MG NEB SCH ×2 (17:54→20:50)
[2020-02-25] MEDS: NS 1/2 1000 ML IV 1,000 ML IV SCH (17:55)
[2020-02-25] MEDS ORDERED: PHARMACY CONSULT LTC MEDICATIONS XX SCH (18:00)
[2020-02-25] MEDS ORDERED: NS 1/2 1000 ML IV 1,000 ML IV ONE (18:05)
[2020-02-25] MEDS: PEPCID TAB 20 MG PO SCH (20:58)
[2020-02-25] MEDS: CLARITIN PO SCH (20:58)
[2020-02-25] MEDS ORDERED: NS 250 ML IV 250 ML IV PRN (21:08)
[2020-02-25] MEDS ORDERED: NS 250 ML IV 250 ML IV ONE (21:38)
[2020-02-25] MEDS: ZOSYN VIAL 4.5 GRAMS 4.5 G in NS 100 ML IV + SPIKE MINIBAG* 100 ML IV SCH (21:40)
[2020-02-26] MEDS: XOPENEX 1.25 MG/3 ML NEBULE NEB SCH ×3 (05:31→18:00)
[2020-02-26 05:43] LABS: BASOPHILS % (AUTO) 0.1 % (0.2-1.0); HEMATOCRIT 28.1 % (42.0-54.0); HEMOGLOBIN 9.2 g/dL (13.5-18.0); LYMPHOCYTES # (AUTO) 0.7 X10^3/uL (1.3-2.9); LYMPHOCYTES % (AUTO) 15.1 % (21.0-51.0); MEAN CORPUSCULAR HEMOGLOBIN 29.2 pg (27.0-34.0); MEAN CORPUSCULAR HGB CONC 32.6 g/dL (33.0-35.0); MEAN CORPUSCULAR VOLUME 89.6 fL (80.0-100.0); MEAN PLATELET VOLUME 8.9 fL (7.4-11.0); MONOCYTES # (AUTO) 0.2 x10^3/uL (0.3-0.8); NEUTROPHILS # (AUTO) 3.9 x10^3/uL (2.2-4.8); NEUTROPHILS % (AUTO) 79.8 % (42.0-75.0); PLATELET COUNT 217 X10^3/uL (150.0-450.0); RED BLOOD COUNT 3.13 X10^6/uL (4.7-6.0); RED CELL DISTRIBUTION WIDTH 14.3 % (11.6-16.5); WHITE BLOOD COUNT 4.9 X10^3/uL (3.6-10.0)
[2020-02-26] MEDS: ZOSYN VIAL 4.5 GRAMS 4.5 G in NS 100 ML IV + SPIKE MINIBAG* 100 ML IV SCH ×3 (06:00→22:53)
[2020-02-26 06:04] LABS: ALBUMIN 2.7 g/dL (3.4-5.0); CALCIUM 7.8 mg/dL (8.5-10.1); CARBON DIOXIDE 22.5 mmol/L (21-32); COR CA(FOR HYPOALB) 8.8 mg/dL (8.5-10.1); CREATININE 1.94 mg/dL (0.70-1.30); TOTAL PROTEIN 6.6 g/dL (6.4-8.2)
[2020-02-26 07:37] LABS: ABG BASE EXCESS -4.6 mmol/L (-2.0-2.0); ABG HCO3 20.3 mmol/L (22-26)
[2020-02-26 07:41] LABS: ABG ALLEN TEST POSS
[2020-02-26] MEDS: PULMICORT NEB TX 0.5 MG NEB SCH ×2 (09:00→20:30)
[2020-02-26] MEDS: PLAQUENIL PO SCH ×2 (09:47→20:18)
[2020-02-26] MEDS: PEPCID TAB 20 MG PO SCH ×2 (09:47→20:18)
[2020-02-26] MEDS: ZITHROMAX INJ 500 MG VIAL 500 MG in NS 250 ML IV 250 ML IV SCH (09:48)
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
[2020-02-26] MEDS: TRICOR TAB 145 MG PO SCH (12:03)
[2020-02-26] MEDS: ZINC SULFATE PO SCH (12:03)
[2020-02-26] MEDS: VITAMIN C PO SCH (12:03)
[2020-02-26] MEDS: VITAMIN A PO SCH (12:03)
[2020-02-26] MEDS: VITAMIN D3 25 mcg (1,000 UNITS) PO SCH (12:04)
[2020-02-26] MEDS: MUCOMYST (RESPIRATORY USE ONLY) NEB SCH ×3 (12:30→18:00)
[2020-02-26] MEDS: SOLU-Medrol 125 MG VIAL IVP SCH ×2 (13:15→22:53)
[2020-02-26] MEDS ORDERED: MUCOMYST (RESPIRATORY USE ONLY) NEB SCH (14:00)
[2020-02-26] MEDS ORDERED: REMDESIVIR (INVESTIGATIONAL DRUG GS-5734) 100 MG in NS 250 ML IV 250 ML IV SCH (17:00)
[2020-02-26] MEDS: NS 1/2 1000 ML IV 1,000 ML IV SCH (17:29)
[2020-02-26] MEDS: REMDESIVIR (INVESTIGATIONAL DRUG GS-5734) 100 MG in NS 250 ML IV 250 ML IV SCH (17:30)
[2020-02-26] MEDS: CLARITIN PO SCH (20:17)
[2020-02-27] MEDS: NS 1/2 1000 ML IV 1,000 ML IV SCH ×3 (00:28→14:34)
[2020-02-27] MEDS: MUCOMYST (RESPIRATORY USE ONLY) NEB SCH ×4 (00:50→17:05)
[2020-02-27] MEDS: XOPENEX 1.25 MG/3 ML NEBULE NEB SCH ×4 (00:50→17:05)
[2020-02-27] MEDS ORDERED: ROBITUSSIN DM PO PRN (02:47)
[2020-02-27] MEDS ORDERED: NS 1/2 1000 ML IV 1,000 ML IV ONE (03:29)
[2020-02-27] MEDS: SOLU-Medrol 125 MG VIAL IVP SCH ×3 (05:32→22:00)
[2020-02-27 05:33] LABS: BASOPHILS % (AUTO) 0.1 % (0.2-1.0); HEMOGLOBIN 8.7 g/dL (13.5-18.0); LYMPHOCYTES # (AUTO) 1.2 X10^3/uL (1.3-2.9); LYMPHOCYTES % (AUTO) 14.9 % (21.0-51.0); MEAN CORPUSCULAR HEMOGLOBIN 29.7 pg (27.0-34.0); MEAN CORPUSCULAR HGB CONC 32.3 g/dL (33.0-35.0); MEAN CORPUSCULAR VOLUME 91.8 fL (80.0-100.0); MEAN PLATELET VOLUME 9.6 fL (7.4-11.0); MONOCYTES # (AUTO) 0.5 x10^3/uL (0.3-0.8); MONOCYTES % (AUTO) 6.4 % (0.0-13.0); NEUTROPHILS # (AUTO) 6.4 x10^3/uL (2.2-4.8); NEUTROPHILS % (AUTO) 78.6 % (42.0-75.0); PLATELET COUNT 233 X10^3/uL (150.0-450.0); RED BLOOD COUNT 2.94 X10^6/uL (4.7-6.0); RED CELL DISTRIBUTION WIDTH 14.4 % (11.6-16.5); WHITE BLOOD COUNT 8.1 X10^3/uL (3.6-10.0)
[2020-02-27] MEDS: ZOSYN VIAL 4.5 GRAMS 4.5 G in NS 100 ML IV + SPIKE MINIBAG* 100 ML IV SCH ×3 (05:33→22:00)
[2020-02-27 05:49] LABS: ALBUMIN 2.5 g/dL (3.4-5.0); CARBON DIOXIDE 23.1 mmol/L (21-32); COR CA(FOR HYPOALB) 9.2 mg/dL (8.5-10.1); CREATININE 1.63 mg/dL (0.70-1.30)
[2020-02-27] MEDS ORDERED: SYNTHROID 125 mcg TAB ONE (07:50)
[2020-02-27] MEDS: PLAQUENIL PO SCH ×2 (08:22→20:41)
[2020-02-27] MEDS: PEPCID TAB 20 MG PO SCH ×2 (08:22→20:42)
[2020-02-27] MEDS: BUTT CREAM (COMPOUND) TOP PRN (08:23)
[2020-02-27] MEDS: SYNTHROID 125 mcg TAB PO SCH (08:23)
[2020-02-27] MEDS: VITAMIN C PO SCH (08:24)
[2020-02-27] MEDS: TRICOR TAB 145 MG PO SCH (08:24)
[2020-02-27] MEDS: VITAMIN A PO SCH (08:24)
[2020-02-27] MEDS: VITAMIN D3 25 mcg (1,000 UNITS) PO SCH (08:26)
[2020-02-27] MEDS: ZINC SULFATE PO SCH (08:26)
[2020-02-27] MEDS: ZITHROMAX INJ 500 MG VIAL 500 MG in NS 250 ML IV 250 ML IV SCH (08:30)
[2020-02-27] MEDS: PULMICORT NEB TX 0.5 MG NEB SCH ×2 (10:05→20:50)
--- NOTE | 2020-02-27 10:12 | PCM.PROG ---
Progress Note Progress Note for Day of Date of Exam: 02/27/20 Subjective Subjective: Patient seen at bedside, patient's sats were noted to be low on non- rebreather so he was placed on BiPAP. He was also taking the mask off. He is resting with BiPAP right now.He is currently on 100%, sats 88-90%. Code status has been discussed with family, they do not want intubation, ok with BiPAP. Awaiting plasma. He has been afebrile. Labs: Hgb: 8.7 Na: 148 Cl:114 Cr: 1.63 down from 1.94 CRP: 69 CXR pending Plan: Follow up CXR, continue current treatment with Zithormax, Zosyn, R emdesivir and Plaquenil. Continue solumedrol. Awaiting plasma. Add heparin for DVT ppx. Monitor closely in the ICU. Monitor AM labs. Past Medical Family Social History Past Med/Fam/Surg Hx: No changes since H&P Allergies: Allergies No Known Drug Allergies Allergy (Verified 03/04/17 15:54) Review of Systems ROS: No change since H&P Vital Signs and I&O's Vital Signs: Temperature 97.8 F Pulse Rate [Right] 68 Pulse Rate 76 Respiratory Rate 20 Blood Pressure [Left Arm] 115/59 O2 Sat by Pulse Oximetry 93 Intake and Output: Intake & Output 02/24/20 02/25/20 02/26/20 02/27/20 23:59 23:59 23:59 23:59 Intake Total 600 / 600 2190 / 2190 360 / 360 Balance 600 / 600 2190 / 2190 360 / 360 Physical Exam Oriented: Unable to test Ear: Normal Respiratory: Generalized and Diminished Cardiovascular: Normal Auscultation: Bowel Sounds: Normal Tenderness: Normal Skin: Decreased Turgur Musculoskeletal: Normal Psychiatric: Normal Mood Description: Calm Affect: Normal Speech Pattern: Artificially Ventilated (on Bipap ) Laboratory and Diagnostics Result Diagrams: 02/27/20 03:56 02/27/20 03:56 Labs: 02/25/20 16:50 Blood Blood Culture - Preliminary 02/25/20 16:45 Blood Blood Culture - Preliminary Laboratory WBC 8.1 X10^3/uL (3.6-10.0) 02/27/20 03:56 RBC 2.94 X10^6/uL (4.7-6.0) L 02/27/20 03:56 Hgb 8.7 g/dL (13.5-18.0) L 02/27/20 03:56 Hct 27.0 % (42.0-54.0) L 02/27/20 03:56 MCV 91.8 fL (80.0-100.0) 02/27/20 03:56 MCH 29.7 pg (27.0-34.0) 02/27/20 03:56 MCHC 32.3 g/dL (33.0-35.0) L 02/27/20 03:56 RDW 14.4 % (11.6-16.5) 02/27/20 03:56 Plt Count 233 X10^3/uL (150.0-450.0) 02/27/20 03:56 MPV 9.6 fL (7.4-11.0) 02/27/20 03:56 Neut % (Auto) 78.6 % (42.0-75.0) H 02/27/20 03:56 Lymph % (Auto) 14.9 % (21.0-51.0) L 02/27/20 03:56 [place] % (Auto) 6.4 % (0.0-13.0) 02/27/20 03:56 Eos % (Auto) 0.0 % (0.9-2.9) L 02/27/20 03:56 Baso % (Auto) 0.1 % (0.2-1.0) L 02/27/20 03:56 Neut # (Auto) 6.4 x10^3/uL (2.2-4.8) H 02/27/20 03:56 Lymph # (Auto) 1.2 X10^3/uL (1.3-2.9) L 02/27/20 03:56 [place] # (Auto) 0.5 x10^3/uL (0.3-0.8) 02/27/20 03:56 Eos # (Auto) 0.0 x10^3/uL (0.0-0.2) 02/27/20 03:56 Baso # (Auto) 0.0 X10^3/uL (0.0-0.1) 02/27/20 03:56 Absolute Nucleated RBC 0.1 /100WBC 02/27/20 03:56 Sample Site L rad 02/26/20 07:30 ABG pH 7.360 (7.35-7.45) 02/26/20 07:30 ABG pCO2 36.0 mmHg (35.0-45.0) 02/26/20 07:30 ABG pO2 25.0 mmHg (80.0-100.0) L* 02/26/20 07:30 ABG HCO3 20.3 mmol/L (22-26) L 02/26/20 07:30 ABG O2 Saturation 42.0 % (90-100) L* 02/26/20 07:30 ABG Base Excess -4.6 mmol/L (-2.0-2.0) L 02/26/20 07:30 Hansel Test Poss 02/26/20 07:30 A-a Gradient 80.0 mmHg 02/26/20 07:30 FiO2 21.0 02/26/20 07:30 Blood Gas Comments Asif well kb 02/26/20 07:30 Sodium 148 mmol/L (136-145) H 02/27/20 03:56 Corrected Sodium 149 mmol/L (136-145) H 02/27/20 03:56 Potassium 3.6 mmol/L (3.5-5.1) 02/27/20 03:56 Chloride 114 mmol/L (98-107) H 02/27/20 03:56 Carbon Dioxide 23.1 mmol/L (21-32) 02/27/20 03:56 BUN 40 mg/dL (7-18) H 02/27/20 03:56 Creatinine 1.63 mg/dL (0.70-1.30) H 02/27/20 03:56 Est GFR (MDRD) Af Amer 54 (>60) L 02/27/20 03:56 Est GFR (MDRD) Non-Af 45 (>60) L 02/27/20 03:56 Glucose 125 mg/dL (65-99) H 02/27/20 03:56 Calcium 8.0 mg/dL (8.5-10.1) L 02/27/20 03:56 Corrected Calcium 9.2 mg/dL (8.5-10.1) 02/27/20 03:56 Magnesium 2.1 mg/dL (1.7-2.9) 02/27/20 03:56 Total Bilirubin 0.20 mg/dL (0.2-1.0) 02/27/20 03:56 AST 63 Units/L (15-37) H 02/27/20 03:56 ALT 36 Units/L (12-78) 02/27/20 03:56 Alkaline Phosphatase 75 Units/L (46-116) 02/27/20 03:56 C-Reactive Protein 69.70 mg/L (0-3.0) H 02/27/20 03:56 Total Protein 6.0 g/dL (6.4-8.2) L 02/27/20 03:56 Albumin 2.5 g/dL (3.4-5.0) L 02/27/20 03:56 Globulin 3.5 g/dL (2.5-4.5) 02/27/20 03:56 Albumin/Globulin Ratio 0.7 Ratio (1.1-2.1) L 02/27/20 03:56 SARS-CoV-2 (PCR) Positive (NEGATIVE) A 02/25/20 17:10 Blood Type O POSITIVE 02/25/20 18:45 Antibody Screen Negative 02/25/20 18:45 Plan (1) Acute respiratory failure with hypoxia: Status: Acute (2) Pneumonia due to COVID-19 virus: Status: Acute (3) Acute on chronic renal failure: Status: Acute Qualifiers: Acute renal failure type: unspecified Chronic kidney disease stage: unspecified stage Qualified Code(s): N17.9 - Acute kidney failure, unspecified; N18.9 - Chronic kidney disease, unspecified (4) Seizures: Status: Chronic (5) Dementia: Status: Chronic Qualifiers: Dementia behavioral disturbance: with behavioral disturbance Dementia type: vascular dementia Qualified Code(s): F01.51 - Vascular dementia with behavioral disturbance (6) Anxiety: Status: Chronic (7) Depression: Status: Chronic Qualifiers: Active/Remission status: currently active Depression Type: major depressive disorder Major depression episode severity: moderate Major depression recurrence: unspecified whether recurrent Qualified Code(s): F32.1 - Major depressive disorder, single episode, moderate (8) Arthritis: Status: Chronic (9) Hypothyroidism: Status: Chronic Qualifiers: Hypothyroidism type: unspecified Qualified Code(s): E03.9 - Hypothyroidism, unspecified (10) Renal insufficiency: Status: Chronic (11) Behavioral problem: Status: Acute (12) COPD (chronic obstructive pulmonary disease) with acute bronchitis: Status: Acute (13) Anemia: Status: Acute Qualifiers: Anemia type: unspecified type Qualified Code(s): D64.9 - Anemia, unspecified
[2020-02-27] MEDS: CELEXA PO SCH (12:15)
[2020-02-27] MEDS: FLOMAX PO SCH (12:16)
[2020-02-27] MEDS: FERROUS GLUCONATE PO SCH (12:16)
[2020-02-27] MEDS: PHENOBARBITAL TAB 30 MG (32.4MG) PO SCH ×2 (12:17→20:46)
[2020-02-27] MEDS: PriLOSEC PO SCH (12:17)
[2020-02-27] MEDS: TAB-A-VITE PO SCH (12:18)
[2020-02-27] MEDS: SENNOSIDES DOCUSATE SODIUM PO SCH (12:18)
[2020-02-27] MEDS: REMDESIVIR (INVESTIGATIONAL DRUG GS-5734) 100 MG in NS 250 ML IV 250 ML IV SCH (13:12)
--- NOTE | 2020-02-27 14:14 | RAD ---
HISTORYHYPOXIASTUDYCHEST, 1 VIEWCOMPARISONAugust 2019FINDINGSThe trachea is midline. The cardiac silhouette is unremarkable . The lungs demonstrate stable interstitial infiltrates which may be chronic. No new infiltrates are seen. The bony thorax is unremarkable.IMPRESSIONStable chest.Electronically signed by: ALEA CAGE (Feb 27, 2020 14:13:17)
[2020-02-27] MEDS: CLARITIN PO SCH (20:38)
[2020-02-27] MEDS: ZOCOR TAB 10 MG PO SCH (20:41)
[2020-02-27] MEDS ORDERED: HEPARIN SODIUM INJ 5000 UNITS IVP SCH (21:00)
[2020-02-28] MEDS: XOPENEX 1.25 MG/3 ML NEBULE NEB SCH ×4 (00:34→17:05)
[2020-02-28] MEDS: MUCOMYST (RESPIRATORY USE ONLY) NEB SCH ×4 (00:34→17:05)
[2020-02-28] MEDS ORDERED: SOLU-Medrol 40 MG VIAL ONE (04:53)
[2020-02-28 05:02] LABS: BASOPHILS % (AUTO) 0.3 % (0.2-1.0); HEMATOCRIT 26.1 % (42.0-54.0); HEMOGLOBIN 8.5 g/dL (13.5-18.0); LYMPHOCYTES # (AUTO) 0.6 X10^3/uL (1.3-2.9); MEAN CORPUSCULAR HEMOGLOBIN 29.4 pg (27.0-34.0); MEAN CORPUSCULAR HGB CONC 32.7 g/dL (33.0-35.0); MEAN PLATELET VOLUME 9.3 fL (7.4-11.0); MONOCYTES # (AUTO) 0.5 x10^3/uL (0.3-0.8); MONOCYTES % (AUTO) 6.5 % (0.0-13.0); NEUTROPHILS # (AUTO) 5.9 x10^3/uL (2.2-4.8); NEUTROPHILS % (AUTO) 84.2 % (42.0-75.0); PLATELET COUNT 218 X10^3/uL (150.0-450.0); RED CELL DISTRIBUTION WIDTH 14.6 % (11.6-16.5)
[2020-02-28 05:13] LABS: ALBUMIN 2.6 g/dL (3.4-5.0); CALCIUM 7.9 mg/dL (8.5-10.1); CARBON DIOXIDE 23.5 mmol/L (21-32); CREATININE 1.55 mg/dL (0.70-1.30); TOTAL PROTEIN 6.1 g/dL (6.4-8.2)
[2020-02-28 05:43] LABS: BAND NEUTROPHILS % 2 % (0-10); HYPOCHROMASIA SLIGHT; PLATELET MORPHOLOGY COMMENT NORMAL (NORMAL)
[2020-02-28] MEDS ORDERED: NS 1/2 1000 ML IV 1,000 ML IV ONE ×2 (05:43→15:43)
[2020-02-28 05:44] LABS: BURR CELLS PRESENT
[2020-02-28] MEDS: SOLU-Medrol 125 MG VIAL IVP SCH ×3 (06:07→20:00)
[2020-02-28] MEDS: ZOSYN VIAL 4.5 GRAMS 4.5 G in NS 100 ML IV + SPIKE MINIBAG* 100 ML IV SCH ×3 (06:08→21:18)
[2020-02-28] MEDS: NS 1/2 1000 ML IV 1,000 ML IV SCH ×2 (06:11→15:58)
[2020-02-28] MEDS ORDERED: HEPARIN SODIUM INJ 5000 UNITS ONE (08:26)
[2020-02-28] MEDS ORDERED: VITAMIN D3 125 mcg (5,000 UNITS) PO ONE (08:27)
[2020-02-28] MEDS: PULMICORT NEB TX 0.5 MG NEB SCH ×2 (08:30→20:30)
[2020-02-28] MEDS: CELEXA PO SCH (10:34)
[2020-02-28] MEDS: FERROUS GLUCONATE PO SCH (10:35)
[2020-02-28] MEDS: FLOMAX PO SCH (10:35)
[2020-02-28] MEDS: PEPCID TAB 20 MG PO SCH ×2 (10:36→21:16)
[2020-02-28] MEDS: HEPARIN SODIUM INJ 5000 UNITS SC SCH ×2 (10:36→21:16)
[2020-02-28] MEDS: PHENOBARBITAL TAB 30 MG (32.4MG) PO SCH ×2 (10:37→21:17)
[2020-02-28] MEDS: PLAQUENIL PO SCH ×2 (10:37→21:17)
[2020-02-28] MEDS: PriLOSEC PO SCH (10:38)
[2020-02-28] MEDS: REMDESIVIR (INVESTIGATIONAL DRUG GS-5734) 100 MG in NS 250 ML IV 250 ML IV SCH (10:38)
[2020-02-28] MEDS: SYNTHROID 125 mcg TAB PO SCH (10:39)
[2020-02-28] MEDS: SENNOSIDES DOCUSATE SODIUM PO SCH (10:39)
[2020-02-28] MEDS: TAB-A-VITE PO SCH (10:40)
[2020-02-28] MEDS: VITAMIN A PO SCH (10:40)
[2020-02-28] MEDS: TRICOR TAB 145 MG PO SCH (10:40)
[2020-02-28] MEDS: VITAMIN C PO SCH (10:41)
[2020-02-28] MEDS: VITAMIN D3 25 mcg (1,000 UNITS) PO SCH (10:42)
[2020-02-28] MEDS: ZINC SULFATE PO SCH (10:43)
[2020-02-28] MEDS: ZITHROMAX INJ 500 MG VIAL 500 MG in NS 250 ML IV 250 ML IV SCH (10:43)
--- NOTE | 2020-02-28 18:22 | RAD ---
HISTORYPNEUMONIA, COVID-19 positiveSTUDYCHEST x-ray, 1 VIEWCOMPARISONX-ray 02/27/2020FINDINGSThe trachea is midline. The cardiac silhouette is probably normal in size. Calcification is seen of the aortic arch.Diffuse increased interstitial densities in the lungs are similar to prior study. No pneumothorax or pleural effusion is seen.No acute bony abnormality is seen.IMPRESSIONDiffuse bilateral interstitial infiltrates are probably due to COVID-19 infection. Appearance is similar to prior study.Electronically signed by: Marc Mccauley (Feb 28, 2020 18:21:14)
[2020-02-28 18:27] LABS: ABG ALLEN TEST POS; ABG BASE EXCESS -2.1 mmol/L (-2.0-2.0); ABG HCO3 22.3 mmol/L (22-26)
[2020-02-28] MEDS: BENADRYL INJ 50 MG VIAL IVP SCH (20:00)
[2020-02-28] MEDS: CLARITIN PO SCH (21:15)
[2020-02-28] MEDS: ZOCOR TAB 10 MG PO SCH (21:17)
[2020-02-28] MEDS ORDERED: SOLU-Medrol 125 MG VIAL IVP SCH (22:00)
[2020-02-29] MEDS: XOPENEX 1.25 MG/3 ML NEBULE NEB SCH ×4 (00:45→17:20)
[2020-02-29] MEDS: MUCOMYST (RESPIRATORY USE ONLY) NEB SCH ×4 (00:45→17:20)
[2020-02-29] MEDS: SOLU-Medrol 125 MG VIAL IVP SCH ×4 (01:39→17:59)
[2020-02-29] MEDS: BENADRYL INJ 50 MG VIAL IVP SCH ×4 (01:39→17:59)
[2020-02-29 04:58] LABS: BASOPHILS % (AUTO) 0.3 % (0.2-1.0); EOSINOPHILS % (AUTO) 0.1 % (0.9-2.9); HEMOGLOBIN 8.6 g/dL (13.5-18.0); LYMPHOCYTES # (AUTO) 0.5 X10^3/uL (1.3-2.9); LYMPHOCYTES % (AUTO) 7.1 % (21.0-51.0); MEAN CORPUSCULAR HEMOGLOBIN 29.8 pg (27.0-34.0); MEAN CORPUSCULAR VOLUME 90.2 fL (80.0-100.0); MEAN PLATELET VOLUME 9.3 fL (7.4-11.0); MONOCYTES # (AUTO) 0.5 x10^3/uL (0.3-0.8); MONOCYTES % (AUTO) 6.6 % (0.0-13.0); NEUTROPHILS # (AUTO) 6.3 x10^3/uL (2.2-4.8); NEUTROPHILS % (AUTO) 85.9 % (42.0-75.0); PLATELET COUNT 259 X10^3/uL (150.0-450.0); RED BLOOD COUNT 2.88 X10^6/uL (4.7-6.0); RED CELL DISTRIBUTION WIDTH 14.6 % (11.6-16.5); WHITE BLOOD COUNT 7.3 X10^3/uL (3.6-10.0)
[2020-02-29 05:12] LABS: ALANINE AMINOTRANSFERASE 44 Units/L (12-78); ALBUMIN 2.7 g/dL (3.4-5.0); ALKALINE PHOSPHATASE 84 Units/L (46-116); ASPARTATE AMINO TRANSFERASE 55 Units/L (15-37); BLOOD UREA NITROGEN 26 mg/dL (7-18); CALCIUM 8.1 mg/dL (8.5-10.1); CARBON DIOXIDE 23.1 mmol/L (21-32); COR CA(FOR HYPOALB) 9.1 mg/dL (8.5-10.1); COR NA(FOR HYPERGLY) 155 mmol/L (136-145); CREATININE 1.43 mg/dL (0.70-1.30); TOTAL PROTEIN 6.4 g/dL (6.4-8.2); eGFR NON BLACK RACES 52 (>60)
[2020-02-29 05:17] LABS: CHLORIDE 119 mmol/L (98-107); SODIUM 154 mmol/L (136-145)
[2020-02-29] MEDS: ZOSYN VIAL 4.5 GRAMS 4.5 G in NS 100 ML IV + SPIKE MINIBAG* 100 ML IV SCH ×3 (05:44→21:16)
[2020-02-29 06:06] LABS: ANISOCYTOSIS SLIGHT; BAND NEUTROPHILS % 7 % (0-10); HYPOCHROMASIA SLIGHT; PLATELET MORPHOLOGY COMMENT NORMAL (NORMAL)
[2020-02-29] MEDS ORDERED: POTASSIUM CHL 40 MEQ/NS 0.45% 500 ML IV PRN (06:10)
[2020-02-29] MEDS ORDERED: KLOR-CON PO PRN (06:10)
[2020-02-29] MEDS ORDERED: MICRO K EXTEN CAP 10 MEQ PO PRN (06:10)
[2020-02-29] MEDS ORDERED: POTASSIUM CHLORIDE LIQ 20 MEQ UDC PO PRN (06:10)
[2020-02-29] MEDS ORDERED: POTASSIUM CHL 60 MEQ/NS 0.45% 500 ML IV PRN (06:10)
[2020-02-29] MEDS ORDERED: K-DUR TAB 20 MEQ PO PRN (06:10)
[2020-02-29] MEDS: VITAMIN A PO SCH (09:13)
[2020-02-29] MEDS: VITAMIN C PO SCH (09:14)
[2020-02-29] MEDS: VITAMIN D3 25 mcg (1,000 UNITS) PO SCH (09:14)
[2020-02-29] MEDS: ZITHROMAX INJ 500 MG VIAL 500 MG in NS 250 ML IV 250 ML IV SCH (09:15)
[2020-02-29] MEDS: TAB-A-VITE PO SCH (09:16)
[2020-02-29] MEDS: CELEXA PO SCH (09:17)
[2020-02-29] MEDS: FERROUS GLUCONATE PO SCH (09:17)
[2020-02-29] MEDS: PEPCID TAB 20 MG PO SCH (09:18)
[2020-02-29] MEDS: FLOMAX PO SCH (09:18)
[2020-02-29] MEDS: ZINC SULFATE PO SCH (09:19)
[2020-02-29] MEDS: SYNTHROID 125 mcg TAB PO SCH (09:20)
[2020-02-29] MEDS: PriLOSEC PO SCH (09:20)
[2020-02-29] MEDS: PLAQUENIL PO SCH ×2 (09:20→21:15)
[2020-02-29] MEDS: PHENOBARBITAL TAB 30 MG (32.4MG) PO SCH ×2 (09:21→21:15)
[2020-02-29] MEDS: HEPARIN SODIUM INJ 5000 UNITS SC SCH ×2 (09:22→21:14)
[2020-02-29] MEDS: SENNOSIDES DOCUSATE SODIUM PO SCH (09:22)
[2020-02-29] MEDS: TRICOR TAB 145 MG PO SCH (09:28)
[2020-02-29] MEDS: PULMICORT NEB TX 0.5 MG NEB SCH ×2 (09:30→20:50)
[2020-02-29] MEDS: REMDESIVIR (INVESTIGATIONAL DRUG GS-5734) 100 MG in NS 250 ML IV 250 ML IV SCH (10:59)
[2020-02-29 11:03] LABS: ABG BASE EXCESS -1.2 mmol/L (-2.0-2.0); ABG HCO3 22.6 mmol/L (22-26)
[2020-02-29 11:04] LABS: ABG ALLEN TEST POS
[2020-02-29] MEDS: NS IV SCH ×2 (14:05→21:14)
[2020-02-29] MEDS: PROTONIX INJ 40 MG VIAL IVP SCH (14:05)
[2020-02-29] MEDS: ASCORBIC ACID MULTI IV SCH ×2 (14:05→21:14)
[2020-02-29] MEDS: NS 1/2 1000 ML IV 1,000 ML IV SCH (17:59)
[2020-02-29] MEDS ORDERED: NS 1/2 1000 ML IV 1,000 ML IV ONE (18:02)
[2020-02-29] MEDS: D5W 1000 ML IV 1,000 ML IV SCH (18:37)
[2020-02-29] MEDS ORDERED: D5W 1000 ML IV 1,000 ML IV ONE (18:48)
[2020-02-29] MEDS: BUTT CREAM (COMPOUND) TOP PRN (21:00)
[2020-02-29] MEDS: PEPCID 20 MG IV PREMIX* 20 MG/50 ML BAG IV SCH (21:15)
[2020-02-29] MEDS: ZOCOR TAB 10 MG PO SCH (21:15)
[2020-02-29] MEDS ORDERED: TYLENOL 325 MG TAB PO PRN (22:46)
[2020-03-01] MEDS: MUCOMYST (RESPIRATORY USE ONLY) NEB SCH ×4 (00:45→17:05)
[2020-03-01] MEDS: XOPENEX 1.25 MG/3 ML NEBULE NEB SCH ×4 (00:45→17:05)
[2020-03-01] MEDS: BENADRYL INJ 50 MG VIAL IVP SCH ×5 (01:42→18:28)
[2020-03-01] MEDS: SOLU-Medrol 125 MG VIAL IVP SCH ×4 (01:42→18:35)
[2020-03-01] MEDS ORDERED: ASCORBIC ACID INJ MULTI-DOSE VIAL IV ONE (03:17)
[2020-03-01] MEDS: ASCORBIC ACID MULTI IV SCH ×5 (03:22→21:12)
[2020-03-01] MEDS: NS IV SCH ×5 (03:22→21:12)
[2020-03-01 05:04] LABS: BASOPHILS % (AUTO) 0.2 % (0.2-1.0); HEMATOCRIT 26.8 % (42.0-54.0); HEMOGLOBIN 8.8 g/dL (13.5-18.0); LYMPHOCYTES # (AUTO) 0.5 X10^3/uL (1.3-2.9); LYMPHOCYTES % (AUTO) 5.5 % (21.0-51.0); MEAN CORPUSCULAR HEMOGLOBIN 29.3 pg (27.0-34.0); MEAN CORPUSCULAR HGB CONC 32.8 g/dL (33.0-35.0); MEAN CORPUSCULAR VOLUME 89.3 fL (80.0-100.0); MEAN PLATELET VOLUME 8.9 fL (7.4-11.0); MONOCYTES # (AUTO) 0.8 x10^3/uL (0.3-0.8); MONOCYTES % (AUTO) 7.7 % (0.0-13.0); NEUTROPHILS # (AUTO) 8.7 x10^3/uL (2.2-4.8); NEUTROPHILS % (AUTO) 86.6 % (42.0-75.0); PLATELET COUNT 277 X10^3/uL (150.0-450.0); RED CELL DISTRIBUTION WIDTH 14.6 % (11.6-16.5); WHITE BLOOD COUNT 10.1 X10^3/uL (3.6-10.0)
[2020-03-01 05:05] LABS: ALANINE AMINOTRANSFERASE 44 Units/L (12-78); ALBUMIN 2.8 g/dL (3.4-5.0); ALKALINE PHOSPHATASE 89 Units/L (46-116); ASPARTATE AMINO TRANSFERASE 48 Units/L (15-37); BLOOD UREA NITROGEN 25 mg/dL (7-18); CARBON DIOXIDE 25.4 mmol/L (21-32); COR NA(FOR HYPERGLY) 156 mmol/L (136-145); TOTAL PROTEIN 6.2 g/dL (6.4-8.2); eGFR NON BLACK RACES 53 (>60)
[2020-03-01] MEDS: ZOSYN VIAL 4.5 GRAMS 4.5 G in NS 100 ML IV + SPIKE MINIBAG* 100 ML IV SCH ×4 (05:24→21:16)
[2020-03-01 05:51] LABS: CHLORIDE 118 mmol/L (98-107); SODIUM 155 mmol/L (136-145)
[2020-03-01 05:53] LABS: BAND NEUTROPHILS % 3 % (0-10)
[2020-03-01 05:54] LABS: PLATELET MORPHOLOGY COMMENT NORMAL (NORMAL)
[2020-03-01] MEDS: BUTT CREAM (COMPOUND) TOP PRN (06:01)
[2020-03-01] MEDS: K-RIDER 10 MEQ/NS 100 ML 10 MEQ/100 ML BAG IV PRN ×3 (06:33→14:34)
[2020-03-01] MEDS: PULMICORT NEB TX 0.5 MG NEB SCH ×2 (09:05→20:15)
[2020-03-01] MEDS: FLOMAX PO SCH (09:39)
[2020-03-01] MEDS: CELEXA PO SCH (09:39)
[2020-03-01] MEDS: PEPCID 20 MG IV PREMIX* 20 MG/50 ML BAG IV SCH ×2 (09:40→21:14)
[2020-03-01] MEDS: PHENOBARBITAL TAB 30 MG (32.4MG) PO SCH ×2 (09:40→21:14)
[2020-03-01] MEDS: PLAQUENIL PO SCH ×2 (09:41→21:15)
[2020-03-01] MEDS: PROTONIX INJ 40 MG VIAL IVP SCH (09:41)
[2020-03-01] MEDS: REMDESIVIR (INVESTIGATIONAL DRUG GS-5734) 100 MG in NS 250 ML IV 250 ML IV SCH (09:41)
[2020-03-01] MEDS: VITAMIN D3 25 mcg (1,000 UNITS) PO SCH (09:42)
[2020-03-01] MEDS: SYNTHROID INJ 100 mcg VIAL IM SCH (09:42)
[2020-03-01] MEDS: ZINC SULFATE PO SCH (09:43)
[2020-03-01] MEDS: HEPARIN SODIUM INJ 5000 UNITS SC SCH ×2 (09:43→21:16)
[2020-03-01] MEDS: ZITHROMAX INJ 500 MG VIAL 500 MG in NS 250 ML IV 250 ML IV SCH (09:43)
[2020-03-01] MEDS: TRICOR TAB 145 MG PO SCH (09:55)
--- NOTE | 2020-03-01 11:18 | RAD ---
HISTORYPNEUMONIA + COVIDSTUDYPortable AP chestCOMPARISONAugust 2019FINDINGSThere is unchanged moderate diffuse interstitial densities. The heart size is normal. There is no obvious effusion.IMPRESSIONModerately severe diffuse interstitial infiltrates that may be from a viral type pneumonitis.Electronically signed by: MARGARET SCOTT (Mar 01, 2020 11:17:39)
[2020-03-01] MEDS ORDERED: MORPHINE SULFATE INJ 2 MG INJ IVP ONE (18:01)
[2020-03-01] MEDS ORDERED: MORPHINE SULFATE INJ 2 MG INJ ONE (18:03)
--- NOTE | 2020-03-01 19:06 | DR.UPDATE ---
H&P Update History and Physical Update: History and Physical reviewed and patient examined. Changes noted: NO Yes with the following: H&P Reviewed: Yes Patient was examined?: Yes Procedures (ALL) - Central Line Placement PCM.CLCO: written consent Time out performed: Yes Patient placed pm monitor/pulse ox: Yes prep: mask, gown, gloves, other Centrial line prep: chlorhexidine scrub Local anesthsia used: lidocane 1% Ultrasound used for placement: Yes (left saphenous id'd) Central line lumen ininserted: double (5.5fr picc inserted 15cm into left saphenous. unsuccessful subclavian attempts per Dr Giron. IJ, and all upper extremity veins were unable to be visualized via u/s. ) Post procedure: good blood return, all ports aspirated, flushed,capped, sterile dressing applied Post procedure xray: other (n/a) Patient tolerated procedure: Yes Complications: none
[2020-03-01] MEDS: ZOCOR TAB 10 MG PO SCH (21:15)
[2020-03-01] MEDS: D5W 1000 ML IV 1,000 ML IV SCH (21:16)
[2020-03-01] MEDS: MORPHINE SULFATE INJ 2 MG INJ IVP PRN (21:17)
[2020-03-02] MEDS: MUCOMYST (RESPIRATORY USE ONLY) NEB SCH ×5 (00:50→17:30)
[2020-03-02] MEDS: XOPENEX 1.25 MG/3 ML NEBULE NEB SCH ×5 (00:50→17:30)
[2020-03-02] MEDS: SOLU-Medrol 125 MG VIAL IVP SCH ×4 (01:18→18:20)
[2020-03-02] MEDS: BENADRYL INJ 50 MG VIAL IVP SCH ×4 (01:18→18:20)
[2020-03-02] MEDS: NS IV SCH ×4 (02:51→22:36)
[2020-03-02] MEDS: ASCORBIC ACID MULTI IV SCH ×4 (02:51→22:36)
[2020-03-02 05:00] LABS: BASOPHILS % (AUTO) 0.1 % (0.2-1.0); HEMATOCRIT 29.6 % (42.0-54.0); HEMOGLOBIN 9.6 g/dL (13.5-18.0); LYMPHOCYTES # (AUTO) 0.5 X10^3/uL (1.3-2.9); LYMPHOCYTES % (AUTO) 4.2 % (21.0-51.0); MEAN CORPUSCULAR HEMOGLOBIN 29.1 pg (27.0-34.0); MEAN CORPUSCULAR HGB CONC 32.6 g/dL (33.0-35.0); MEAN CORPUSCULAR VOLUME 89.3 fL (80.0-100.0); MEAN PLATELET VOLUME 9.1 fL (7.4-11.0); MONOCYTES # (AUTO) 0.8 x10^3/uL (0.3-0.8); MONOCYTES % (AUTO) 6.2 % (0.0-13.0); NEUTROPHILS # (AUTO) 11.2 x10^3/uL (2.2-4.8); NEUTROPHILS % (AUTO) 89.5 % (42.0-75.0); PLATELET COUNT 292 X10^3/uL (150.0-450.0); RED BLOOD COUNT 3.31 X10^6/uL (4.7-6.0); RED CELL DISTRIBUTION WIDTH 14.3 % (11.6-16.5); WHITE BLOOD COUNT 12.5 X10^3/uL (3.6-10.0)
[2020-03-02 05:17] LABS: ALANINE AMINOTRANSFERASE 45 Units/L (12-78); ALBUMIN 2.9 g/dL (3.4-5.0); ALKALINE PHOSPHATASE 105 Units/L (46-116); ASPARTATE AMINO TRANSFERASE 46 Units/L (15-37); BLOOD UREA NITROGEN 23 mg/dL (7-18); CALCIUM 8.1 mg/dL (8.5-10.1); CARBON DIOXIDE 25.3 mmol/L (21-32); COR NA(FOR HYPERGLY) 155 mmol/L (136-145); CREATININE 1.27 mg/dL (0.70-1.30); TOTAL PROTEIN 6.5 g/dL (6.4-8.2); eGFR NON BLACK RACES 60 (>60)
[2020-03-02 05:30] LABS: CHLORIDE 116 mmol/L (98-107); SODIUM 153 mmol/L (136-145)
[2020-03-02] MEDS: ZOSYN VIAL 4.5 GRAMS 4.5 G in NS 100 ML IV + SPIKE MINIBAG* 100 ML IV SCH ×3 (05:34→22:39)
[2020-03-02] MEDS: D5W 1000 ML IV 1,000 ML IV SCH (05:35)
[2020-03-02] MEDS: CELEXA PO SCH (09:00)
[2020-03-02] MEDS: HEPARIN SODIUM INJ 5000 UNITS SC SCH ×2 (09:01→22:40)
[2020-03-02] MEDS: FLOMAX PO SCH (09:01)
[2020-03-02] MEDS: PEPCID 20 MG IV PREMIX* 20 MG/50 ML BAG IV SCH ×2 (09:01→22:40)
[2020-03-02] MEDS: PHENOBARBITAL TAB 30 MG (32.4MG) PO SCH ×2 (09:02→22:41)
[2020-03-02] MEDS: PROTONIX INJ 40 MG VIAL IVP SCH ×2 (09:03→22:40)
[2020-03-02] MEDS: PLAQUENIL PO SCH ×2 (09:03→22:37)
[2020-03-02] MEDS: SYNTHROID INJ 100 mcg VIAL IM SCH (09:04)
[2020-03-02] MEDS: PULMICORT NEB TX 0.5 MG NEB SCH ×2 (09:05→21:00)
[2020-03-02] MEDS: ZITHROMAX INJ 500 MG VIAL 500 MG in NS 250 ML IV 250 ML IV SCH (09:05)
[2020-03-02] MEDS: ZINC SULFATE PO SCH (09:06)
[2020-03-02] MEDS: TRICOR TAB 145 MG PO SCH (09:06)
[2020-03-02 09:08] LABS: ABG BASE EXCESS 3.9 mmol/L (-2.0-2.0); ABG HCO3 27.7 mmol/L (22-26)
[2020-03-02 09:09] LABS: ABG ALLEN TEST POS
[2020-03-02] MEDS: VITAMIN D3 25 mcg (1,000 UNITS) PO SCH (09:09)
[2020-03-02 15:32] LABS: ABG BASE EXCESS -0.6 mmol/L (-2.0-2.0); ABG HCO3 26.9 mmol/L (22-26)
[2020-03-02 15:33] LABS: ABG ALLEN TEST POS
[2020-03-02] MEDS ORDERED: PHARMACY CONSULT - TPN XX SCH (19:00)
[2020-03-02] MEDS: ZOCOR TAB 10 MG PO SCH (22:39)
[2020-03-03] MEDS: XOPENEX 1.25 MG/3 ML NEBULE NEB SCH ×4 (00:05→17:21)
[2020-03-03] MEDS: MUCOMYST (RESPIRATORY USE ONLY) NEB SCH ×4 (00:05→17:21)
[2020-03-03] MEDS ORDERED: NS 100 ML IV 100 ML IV ONE (01:33)
[2020-03-03] MEDS: SOLU-Medrol 125 MG VIAL IVP SCH ×4 (01:50→20:26)
[2020-03-03] MEDS: BENADRYL INJ 50 MG VIAL IVP SCH ×4 (01:50→20:24)
[2020-03-03] MEDS: ASCORBIC ACID MULTI IV SCH ×4 (02:36→20:27)
[2020-03-03] MEDS: NS IV SCH ×4 (02:36→20:27)
[2020-03-03 06:05] LABS: BASOPHILS % (AUTO) 0.1 % (0.2-1.0); HEMATOCRIT 28.4 % (42.0-54.0); HEMOGLOBIN 9.2 g/dL (13.5-18.0); LYMPHOCYTES # (AUTO) 0.6 X10^3/uL (1.3-2.9); LYMPHOCYTES % (AUTO) 4.4 % (21.0-51.0); MEAN CORPUSCULAR HEMOGLOBIN 29.1 pg (27.0-34.0); MEAN CORPUSCULAR HGB CONC 32.5 g/dL (33.0-35.0); MEAN CORPUSCULAR VOLUME 89.4 fL (80.0-100.0); MEAN PLATELET VOLUME 8.9 fL (7.4-11.0); MONOCYTES # (AUTO) 0.9 x10^3/uL (0.3-0.8); MONOCYTES % (AUTO) 6.8 % (0.0-13.0); NEUTROPHILS # (AUTO) 11.3 x10^3/uL (2.2-4.8); NEUTROPHILS % (AUTO) 88.7 % (42.0-75.0); PLATELET COUNT 303 X10^3/uL (150.0-450.0); RED BLOOD COUNT 3.17 X10^6/uL (4.7-6.0); RED CELL DISTRIBUTION WIDTH 14.8 % (11.6-16.5); WHITE BLOOD COUNT 12.7 X10^3/uL (3.6-10.0)
[2020-03-03] MEDS: ZOSYN VIAL 4.5 GRAMS 4.5 G in NS 100 ML IV + SPIKE MINIBAG* 100 ML IV SCH ×3 (06:10→23:06)
[2020-03-03 06:34] LABS: ALANINE AMINOTRANSFERASE 41 Units/L (12-78); ALBUMIN 2.9 g/dL (3.4-5.0); ALKALINE PHOSPHATASE 95 Units/L (46-116); ASPARTATE AMINO TRANSFERASE 41 Units/L (15-37); BLOOD UREA NITROGEN 27 mg/dL (7-18); CALCIUM 8.2 mg/dL (8.5-10.1); CARBON DIOXIDE 25.3 mmol/L (21-32); COR CA(FOR HYPOALB) 9.1 mg/dL (8.5-10.1); COR NA(FOR HYPERGLY) 157 mmol/L (136-145); CREATININE 1.45 mg/dL (0.70-1.30); TOTAL PROTEIN 6.5 g/dL (6.4-8.2); eGFR NON BLACK RACES 51 (>60)
[2020-03-03 06:36] LABS: SODIUM 156 mmol/L (136-145)
[2020-03-03 06:37] LABS: CHLORIDE 118 mmol/L (98-107)
[2020-03-03 07:38] LABS: BAND NEUTROPHILS % 6 % (0-10); PLATELET MORPHOLOGY COMMENT NORMAL (NORMAL)
[2020-03-03] MEDS: PULMICORT NEB TX 0.5 MG NEB SCH ×2 (08:10→20:20)
[2020-03-03] MEDS: FLOMAX PO SCH (09:15)
[2020-03-03] MEDS: CELEXA PO SCH (09:15)
[2020-03-03] MEDS: PHENOBARBITAL TAB 30 MG (32.4MG) PO SCH ×2 (09:17→20:25)
[2020-03-03] MEDS: PROTONIX INJ 40 MG VIAL IVP SCH ×2 (09:18→20:25)
[2020-03-03] MEDS: PLAQUENIL PO SCH ×2 (09:18→20:26)
[2020-03-03 09:19] LABS: ABG ALLEN TEST POS; ABG BASE EXCESS 3.3 mmol/L (-2.0-2.0); ABG HCO3 27.8 mmol/L (22-26)
[2020-03-03] MEDS: SYNTHROID INJ 100 mcg VIAL IM SCH (09:19)
[2020-03-03] MEDS: HEPARIN SODIUM INJ 5000 UNITS SC SCH ×2 (09:30→20:26)
[2020-03-03] MEDS: VITAMIN D3 25 mcg (1,000 UNITS) PO SCH (09:30)
[2020-03-03] MEDS: ZINC SULFATE PO SCH (09:30)
[2020-03-03] MEDS: ZITHROMAX INJ 500 MG VIAL 500 MG in NS 250 ML IV 250 ML IV SCH (10:00)
[2020-03-03] MEDS: TRICOR TAB 145 MG PO SCH (10:25)
[2020-03-03] MEDS: PEPCID 20 MG IV PREMIX* 20 MG/50 ML BAG IV SCH (10:45)
--- NOTE | 2020-03-03 11:14 | RAD ---
HISTORYSOB, COVIDSTUDYCHEST x-ray, 1 VIEWCOMPARISONX-ray 03/01/20FINDINGSPersistent interstitial densities in the lungs are unchanged. Heart is likely normal in size. Calcification is seen of the aortic arch. Small left pleural effusion is not excluded, unchanged. No pneumothorax is seen.IMPRESSIONAppearance of the chest is unchanged.Electronically signed by: Marc Mccauley (Mar 03, 2020 11:13:36)
[2020-03-03] MEDS: PROCALAMINE 3 % 1,000 ML IV SCH (12:00)
[2020-03-03] MEDS: MORPHINE SULFATE INJ 2 MG INJ IVP PRN (12:34)
[2020-03-03] MEDS: D5W 1000 ML IV 1,000 ML IV SCH (13:03)
[2020-03-03] MEDS: ATIVAN INJ 2 MG VIAL IVP SCH ×2 (16:54→23:45)
[2020-03-03] MEDS: ZOCOR TAB 10 MG PO SCH (20:25)
[2020-03-04] MEDS: MUCOMYST (RESPIRATORY USE ONLY) NEB SCH ×5 (00:30→17:05)
[2020-03-04] MEDS: XOPENEX 1.25 MG/3 ML NEBULE NEB SCH ×5 (00:31→17:05)
[2020-03-04] MEDS: SOLU-Medrol 125 MG VIAL IVP SCH ×4 (01:56→18:18)
[2020-03-04] MEDS: BENADRYL INJ 50 MG VIAL IVP SCH ×4 (01:56→18:18)
[2020-03-04] MEDS: NS IV SCH ×4 (03:40→21:18)
[2020-03-04] MEDS: ASCORBIC ACID MULTI IV SCH ×4 (03:40→21:18)
[2020-03-04 03:53] LABS: ABG ALLEN TEST POS; ABG BASE EXCESS 3.9 mmol/L (-2.0-2.0); ABG HCO3 27.7 mmol/L (22-26)
[2020-03-04] MEDS: D5W 1000 ML IV 1,000 ML IV SCH ×3 (05:25→15:16)
[2020-03-04 05:47] LABS: BASOPHILS % (AUTO) 0.2 % (0.2-1.0); HEMATOCRIT 30.6 % (42.0-54.0); HEMOGLOBIN 9.9 g/dL (13.5-18.0); LYMPHOCYTES # (AUTO) 0.6 X10^3/uL (1.3-2.9); LYMPHOCYTES % (AUTO) 3.9 % (21.0-51.0); MEAN CORPUSCULAR HEMOGLOBIN 28.8 pg (27.0-34.0); MEAN CORPUSCULAR HGB CONC 32.4 g/dL (33.0-35.0); MEAN CORPUSCULAR VOLUME 88.9 fL (80.0-100.0); MEAN PLATELET VOLUME 8.2 fL (7.4-11.0); MONOCYTES # (AUTO) 0.8 x10^3/uL (0.3-0.8); MONOCYTES % (AUTO) 5.2 % (0.0-13.0); NEUTROPHILS # (AUTO) 14.9 x10^3/uL (2.2-4.8); NEUTROPHILS % (AUTO) 90.7 % (42.0-75.0); PLATELET COUNT 301 X10^3/uL (150.0-450.0); RED BLOOD COUNT 3.44 X10^6/uL (4.7-6.0); RED CELL DISTRIBUTION WIDTH 15.1 % (11.6-16.5); WHITE BLOOD COUNT 16.4 X10^3/uL (3.6-10.0)
[2020-03-04] MEDS: ATIVAN INJ 2 MG VIAL IVP SCH ×3 (05:57→21:19)
[2020-03-04] MEDS: ZOSYN VIAL 4.5 GRAMS 4.5 G in NS 100 ML IV + SPIKE MINIBAG* 100 ML IV SCH ×3 (05:58→21:18)
[2020-03-04 06:05] LABS: ALANINE AMINOTRANSFERASE 36 Units/L (12-78); ALBUMIN 2.8 g/dL (3.4-5.0); ALKALINE PHOSPHATASE 94 Units/L (46-116); ASPARTATE AMINO TRANSFERASE 34 Units/L (15-37); BLOOD UREA NITROGEN 25 mg/dL (7-18); CALCIUM 8.3 mg/dL (8.5-10.1); CARBON DIOXIDE 25.8 mmol/L (21-32); CHLORIDE 113 mmol/L (98-107); COR CA(FOR HYPOALB) 9.3 mg/dL (8.5-10.1); COR NA(FOR HYPERGLY) 152 mmol/L (136-145); CREATININE 1.34 mg/dL (0.70-1.30); TOTAL PROTEIN 6.7 g/dL (6.4-8.2); eGFR NON BLACK RACES 56 (>60)
[2020-03-04 06:07] LABS: SODIUM 150 mmol/L (136-145)
--- NOTE | 2020-03-04 06:46 | RAD ---
HISTORYSOB hypoxiaSTUDYAP [id number]/21/2020FINDINGSPersistent diffuse mixed alveolar-interstitial infiltrates with slig ht interval progression of this process since 1 day earlier. Heart size is similar. No pneumothorax o r large pleural effusion is evident.IMPRESSIONInterval progression/increase in bilateral pulmonary in filtrates and/or edema since 03/03/2020.Electronically signed by: RADHA TORO (Mar 04, 2020 06:45: 22)
[2020-03-04 07:02] LABS: BAND NEUTROPHILS % 5 % (0-10); PLATELET MORPHOLOGY COMMENT NORMAL (NORMAL)
[2020-03-04] MEDS: PULMICORT NEB TX 0.5 MG NEB SCH ×2 (08:50→20:50)
[2020-03-04] MEDS: PEPCID 20 MG IV PREMIX* 20 MG/50 ML BAG IV SCH (09:14)
[2020-03-04] MEDS: PROCALAMINE 3 % 1,000 ML IV SCH (09:16)
[2020-03-04] MEDS: PROTONIX INJ 40 MG VIAL IVP SCH ×2 (09:17→21:18)
[2020-03-04] MEDS: HEPARIN SODIUM INJ 5000 UNITS SC SCH ×2 (09:20→21:18)
[2020-03-04] MEDS: SYNTHROID INJ 100 mcg VIAL IM SCH (09:27)
[2020-03-04] MEDS: ZITHROMAX INJ 500 MG VIAL 500 MG in NS 250 ML IV 250 ML IV SCH (09:35)
[2020-03-04] MEDS: CELEXA PO SCH (10:35)
[2020-03-04] MEDS: FLOMAX PO SCH (10:35)
[2020-03-04] MEDS: PHENOBARBITAL TAB 30 MG (32.4MG) PO SCH (10:36)
[2020-03-04] MEDS: PLAQUENIL PO SCH (10:36)
[2020-03-04] MEDS: ZINC SULFATE PO SCH (10:37)
[2020-03-04] MEDS: TRICOR TAB 145 MG PO SCH (10:37)
[2020-03-04] MEDS: VITAMIN D3 25 mcg (1,000 UNITS) PO SCH (10:37)
--- NOTE | 2020-03-04 11:35 | PCM.PROG ---
Progress Note - Progress Note for Day of Date of Exam: 03/04/20 - Subjective Subjective: IS A PATIENT OF . HE IS A RESIDENT OF [facility]. HE IS BEING TREATED FOR PNEUMONIA DUE TO COVID-19, HYPOXIA, HYPERNATREMIA, AND PROTEIN CALORIE MALNUTRITION. HE HAS A HISTORY OF HTN AND SEIZURE DISORDER. HE IS CURRENTLY UTILIZING THE BIPAP. TODAY, HE IS LYING IN BED ON MORNING ROUNDS. HE AWAKENS TO VERBAL STIMULI. HE CONTINUES WITH COMPLAINTS OF COUGH, SHORTNESS OF BREATH, AND WEAKNESS TODAY, BUT REPORTS SLIGHT IMPROVEMENT IN SYMPTOMS. ON EXAMINATION, HEART IS REGULAR IN RATE AND RHYTHM. BILATERAL LUNGS ARE NOTED WITH DIMINISHED LUNG SOUNDS THROUGHOUT. ABDOMEN IS ROUND, SOFT, AND NON-TENDER WITH NORMAL BOWEL SOUNDS NOTED IN ALL QUADRANTS. HER VITALS THIS MORNING ARE: 98.7-75-28-92%BIPAP-162/74. LABS WERE OBTAINED. ABNORMAL LAB VALUES INCLUDE THE FOLLOWING: WBC 16.4, RBC 3.44, HGB 9.9, HCT 30.6, SODIUM 150, POTASSIUM 3.4, CHLORIDE 113, BUN 25, CREATININE 1.34, GLUCOSE 192, CALCIUM 8.3, FERRITIN 960, CRP 87.60, ALBUMIN 2.8. AN ABG WAS OBTAINED AND REVEALED: PH 7.470, PC02 38, P02 56, HC03 27.7, 02 SAT 91, FI02 80. A CHEST XRAY WAS OBTAINED AND REVEALED: Interval progression/increase in bilateral pulmonary infiltrates and/or edema since 03/03/2020. WE WILL CONTINUE WITH HIS PROCAL, ANTIBIOTICS, REMDESIVIR, NEB TX, AND CURRENT PLAN OF CARE TODAY. OTHERWISE, WE PLAN TO FOLLOW UP WITH AM LABS, CHEST XRAY, AND ABG AND CONTINUE TO MONITOR. - Past Medical Family Social History Past Med/Fam/Surg Hx: No changes since H&P Allergies: Allergies No Known Drug Allergies Allergy (Verified 03/04/17 15:54) - Review of Systems ROS: No change since H&P - Vital Signs and I&O's Vital Signs: Temperature 98.5 F Pulse Rate [Right] 68 Pulse Rate 75 Respiratory Rate 38 Blood Pressure [Left Arm] 115/59 Blood Pressure 162/74 O2 Sat by Pulse Oximetry 92 Intake and Output: Intake & Output 03/01/20 03/02/20 03/03/20 03/04/20 11:59 11:59 11:59 11:59 Intake Total 1984 / 2500 2730 / 2730 2835 / 2835 Balance 1984 2500 / 2500 2730 / 2730 2835 / 2835 - Physical Exam Oriented: Person, Place Eyes: Normal Ear: Normal Nose: Normal Throat: Normal Respiratory: Generalized, Diminished Cardiovascular: Normal Auscultation: Bowel Sounds: Normal Palpation: Normal Tenderness: Normal Skin: Decreased Turgur Musculoskeletal: Normal Psychiatric: Normal Mood Description: Calm Affect: Normal Speech Pattern: Delayed, Slurred - Laboratory and Diagnostics Result Diagrams: 03/04/20 05:05 03/04/20 05:05 Labs: 02/25/20 16:50 Blood Blood Culture - Final 02/25/20 16:45 Blood Blood Culture - Final Laboratory WBC 16.4 X10^3/uL (3.6-10.0) H 03/04/20 05:05 RBC 3.44 X10^6/uL (4.7-6.0) L 03/04/20 05:05 Hgb 9.9 g/dL (13.5-18.0) L 03/04/20 05:05 Hct 30.6 % (42.0-54.0) L 03/04/20 05:05 MCV 88.9 fL (80.0-100.0) 03/04/20 05:05 MCH 28.8 pg (27.0-34.0) 03/04/20 05:05 MCHC 32.4 g/dL (33.0-35.0) L 03/04/20 05:05 RDW 15.1 % (11.6-16.5) 03/04/20 05:05 Plt Count 301 X10^3/uL (150.0-450.0) 03/04/20 05:05 Plt Count Comment Adequate (ADEQUATE) 03/04/20 05:05 MPV 8.2 fL (7.4-11.0) 03/04/20 05:05 Neut % (Auto) 90.7 % (42.0-75.0) H 03/04/20 05:05 Lymph % (Auto) 3.9 % (21.0-51.0) L 03/04/20 05:05 [place] % (Auto) 5.2 % (0.0-13.0) 03/04/20 05:05 Eos % (Auto) 0.0 % (0.9-2.9) L 03/04/20 05:05 Baso % (Auto) 0.2 % (0.2-1.0) 03/04/20 05:05 Neut # (Auto) 14.9 x10^3/uL (2.2-4.8) H 03/04/20 05:05 Lymph # (Auto) 0.6 X10^3/uL (1.3-2.9) L 03/04/20 05:05 [place] # (Auto) 0.8 x10^3/uL (0.3-0.8) 03/04/20 05:05 Eos # (Auto) 0.0 x10^3/uL (0.0-0.2) 03/04/20 05:05 Baso # (Auto) 0.0 X10^3/uL (0.0-0.1) 03/04/20 05:05 Absolute Nucleated RBC 0.1 /100WBC 03/04/20 05:05 Total Counted 100 03/04/20 05:05 Neutrophils % (Manual) 84 % (39-76) H 03/04/20 05:05 Band Neutrophils % 5 % (0-10) 03/04/20 05:05 Lymphocytes % (Manual) 5 % (13-43) L 03/04/20 05:05 Monocytes % (Manual) 6 % (4-9) 03/04/20 05:05 Plt Morphology Comment Normal (NORMAL) 03/04/20 05:05 RBC Morphology Normal (NORMAL) 03/04/20 05:05 Hypochromasia Slight A 02/29/20 03:45 Anisocytosis Slight A 02/29/20 03:45 [place] Cells Present 02/28/20 03:44 Sample Site Lr 03/04/20 03:45 ABG pH 7.470 (7.35-7.45) H 03/04/20 03:45 ABG pCO2 38.0 mmHg (35.0-45.0) 03/04/20 03:45 ABG pO2 56.0 mmHg (80.0-100.0) L 03/04/20 03:45 ABG HCO3 27.7 mmol/L (22-26) H 03/04/20 03:45 ABG O2 Saturation 91.0 % (90-100) 03/04/20 03:45 ABG Base Excess 3.9 mmol/L (-2.0-2.0) H 03/04/20 03:45 Hansel Test Pos 03/04/20 03:45 A-a Gradient 467.0 mmHg 03/04/20 03:45 FiO2 80.0 03/04/20 03:45 Blood Gas Comments Asif well ae 03/04/20 03:45 Sodium 150 mmol/L (136-145) H* 03/04/20 05:05 Corrected Sodium 152 mmol/L (136-145) H 03/04/20 05:05 Potassium 3.4 mmol/L (3.5-5.1) L 03/04/20 05:05 Chloride 113 mmol/L (98-107) H 03/04/20 05:05 Carbon Dioxide 25.8 mmol/L (21-32) 03/04/20 05:05 BUN 25 mg/dL (7-18) H 03/04/20 05:05 Creatinine 1.34 mg/dL (0.70-1.30) H 03/04/20 05:05 Est GFR (MDRD) Af Amer > 60 (>60) 03/04/20 05:05 Est GFR (MDRD) Non-Af 56 (>60) L 03/04/20 05:05 Glucose 192 mg/dL (65-99) H 03/04/20 05:05 Calcium 8.3 mg/dL (8.5-10.1) L 03/04/20 05:05 Corrected Calcium 9.3 mg/dL (8.5-10.1) 03/04/20 05:05 Magnesium 2.1 mg/dL (1.7-2.9) 02/27/20 03:56 Ferritin 960 ng/mL (26-388) H 03/04/20 05:05 Total Bilirubin 0.50 mg/dL (0.2-1.0) 03/04/20 05:05 AST 34 Units/L (15-37) 03/04/20 05:05 ALT 36 Units/L (12-78) 03/04/20 05:05 Alkaline Phosphatase 94 Units/L (46-116) 03/04/20 05:05 C-Reactive Protein 87.60 mg/L (0-3.0) H 03/04/20 05:05 Total Protein 6.7 g/dL (6.4-8.2) 03/04/20 05:05 Albumin 2.8 g/dL (3.4-5.0) L 03/04/20 05:05 Globulin 3.9 g/dL (2.5-4.5) 03/04/20 05:05 Albumin/Globulin Ratio 0.7 Ratio (1.1-2.1) L 03/04/20 05:05 Prealbumin 18.5 mg/dL (18-35.7) 03/03/20 04:05 SARS-CoV-2 (PCR) Positive (NEGATIVE) A 02/25/20 17:10 Blood Type O POSITIVE 02/25/20 18:45 Antibody Screen Negative 02/25/20 18:45 - Plan (1) Pneumonia due to COVID-19 virus Status: Acute (2) Acute respiratory failure with hypoxia Status: Acute (3) Acute on chronic renal failure Status: Acute Qualifiers: Acute renal failure type: unspecified (4) Seizures Status: Chronic (5) Dementia Status: Chronic Qualifiers: Dementia type: unspecified type Dementia behavioral disturbance: without behavioral disturbance Qualified Code(s): F03.90 - Unspecified dementia without behavioral disturbance (6) Hyperlipidemia Status: Chronic
[2020-03-04] MEDS: K-RIDER 10 MEQ/NS 100 ML 10 MEQ/100 ML BAG IV PRN ×2 (13:38→15:15)
[2020-03-04] MEDS ORDERED: OFIRMEV IV 1000 MG VIAL 1,000 MG/100 ML VIAL IV PRN (17:40)
[2020-03-04] MEDS ORDERED: GEODON INJ IM ONE (20:39)
[2020-03-04] MEDS ORDERED: STERILE WATER FOR INJECTION IV PRN (20:53)
[2020-03-04] MEDS ORDERED: DEPAKENE IV SCH (21:00)
[2020-03-04] MEDS ORDERED: NS IV SCH (21:00)
[2020-03-04] MEDS: GEODON INJ IM SCH (21:19)
[2020-03-04] MEDS: PHENOBARBITAL SODIUM INJ 65 MG VIAL IVP SCH (21:19)
[2020-03-05] MEDS: MUCOMYST (RESPIRATORY USE ONLY) NEB SCH ×4 (00:33→17:10)
[2020-03-05] MEDS: XOPENEX 1.25 MG/3 ML NEBULE NEB SCH ×4 (00:33→17:10)
[2020-03-05] MEDS ORDERED: NS 100 ML IV 100 ML IV ONE (00:40)
[2020-03-05] MEDS: SOLU-Medrol 125 MG VIAL IVP SCH ×4 (01:33→18:34)
[2020-03-05] MEDS: BENADRYL INJ 50 MG VIAL IVP SCH ×4 (01:33→18:34)
[2020-03-05] MEDS: ASCORBIC ACID MULTI IV SCH ×3 (03:28→21:58)
[2020-03-05] MEDS: NS IV SCH ×3 (03:28→21:58)
[2020-03-05] MEDS: D5W 1000 ML IV 1,000 ML IV SCH ×2 (03:29→16:24)
[2020-03-05] MEDS: K-RIDER 10 MEQ/NS 100 ML 10 MEQ/100 ML BAG IV PRN ×2 (04:28→06:04)
[2020-03-05 05:17] LABS: ABG ALLEN TEST POS; ABG BASE EXCESS 3.1 mmol/L (-2.0-2.0)
[2020-03-05] MEDS: ZOSYN VIAL 4.5 GRAMS 4.5 G in NS 100 ML IV + SPIKE MINIBAG* 100 ML IV SCH ×3 (06:03→21:58)
[2020-03-05] MEDS: ATIVAN INJ 2 MG VIAL IVP SCH ×3 (06:03→21:58)
[2020-03-05 06:26] LABS: BASOPHILS % (AUTO) 0.1 % (0.2-1.0); HEMOGLOBIN 8.5 g/dL (13.5-18.0); LYMPHOCYTES # (AUTO) 0.5 X10^3/uL (1.3-2.9); LYMPHOCYTES % (AUTO) 2.8 % (21.0-51.0); MEAN CORPUSCULAR HEMOGLOBIN 29.5 pg (27.0-34.0); MEAN CORPUSCULAR HGB CONC 32.8 g/dL (33.0-35.0); MEAN CORPUSCULAR VOLUME 90.1 fL (80.0-100.0); MEAN PLATELET VOLUME 9.3 fL (7.4-11.0); MONOCYTES # (AUTO) 0.6 x10^3/uL (0.3-0.8); MONOCYTES % (AUTO) 3.5 % (0.0-13.0); NEUTROPHILS # (AUTO) 17.1 x10^3/uL (2.2-4.8); NEUTROPHILS % (AUTO) 93.6 % (42.0-75.0); PLATELET COUNT 272 X10^3/uL (150.0-450.0); RED BLOOD COUNT 2.88 X10^6/uL (4.7-6.0); RED CELL DISTRIBUTION WIDTH 15.1 % (11.6-16.5); WHITE BLOOD COUNT 18.3 X10^3/uL (3.6-10.0)
[2020-03-05 06:32] LABS: ALANINE AMINOTRANSFERASE 32 Units/L (12-78); ALBUMIN 2.4 g/dL (3.4-5.0); ALKALINE PHOSPHATASE 73 Units/L (46-116); ASPARTATE AMINO TRANSFERASE 31 Units/L (15-37); BLOOD UREA NITROGEN 23 mg/dL (7-18); CARBON DIOXIDE 26.5 mmol/L (21-32); CHLORIDE 113 mmol/L (98-107); COR CA(FOR HYPOALB) 9.3 mg/dL (8.5-10.1); COR NA(FOR HYPERGLY) 150 mmol/L (136-145); SODIUM 148 mmol/L (136-145); TOTAL PROTEIN 6.1 g/dL (6.4-8.2); TSH (3RD GENERATION) 0.139 uIU/mL (0.358-3.74); eGFR NON BLACK RACES > 60 (>60)
[2020-03-05 06:36] LABS: VALPROIC ACID 3.1 ug/mL (50-100)
--- NOTE | 2020-03-05 07:05 | RAD ---
HISTORYFollow-up COVID-19STUDYChest AP [id number] heart remains enlarged. No definite congestive heart failure is noted. Diffuse bilateral interstitial and some ground-glass infiltrates are unchanged. No pleural effusions are identified. Bony thorax is unremarkable.IMPRESSIONNo significant change from the prior examinationElectronically signed by: ANGELINA GARCIA (Mar 05, 2020 07:05:17)
[2020-03-05 07:07] LABS: BAND NEUTROPHILS % 7 % (0-10)
[2020-03-05 07:08] LABS: PLATELET MORPHOLOGY COMMENT NORMAL (NORMAL)
[2020-03-05] MEDS: PEPCID 20 MG IV PREMIX* 20 MG/50 ML BAG IV SCH (08:29)
[2020-03-05] MEDS: PROTONIX INJ 40 MG VIAL IVP SCH ×2 (09:24→21:59)
[2020-03-05] MEDS: PULMICORT NEB TX 0.5 MG NEB SCH ×2 (09:25→20:50)
[2020-03-05] MEDS: HEPARIN SODIUM INJ 5000 UNITS SC SCH ×2 (10:04→22:00)
[2020-03-05] MEDS: GEODON INJ IM SCH ×2 (10:13→21:59)
[2020-03-05] MEDS: PROCALAMINE 3 % 1,000 ML with MVI INJ (ADULT) 10 ML IV SCH ×2 (10:53)
[2020-03-05] MEDS: PHENOBARBITAL SODIUM INJ 65 MG VIAL IVP SCH ×2 (14:01→21:59)
[2020-03-05] MEDS ORDERED: SOLU-Medrol 40 MG VIAL ONE (17:01)
[2020-03-05] MEDS ORDERED: SOLU-Medrol 125 MG VIAL ONE (19:57)
[2020-03-05] MEDS ORDERED: GEODON INJ IM ONE (20:00)
--- NOTE | 2020-03-05 22:36 | PCM.PROG ---
Progress Note - Progress Note for Day of Date of Exam: 03/05/20 - Subjective Subjective: IS A PATIENT OF . HE IS A RESIDENT OF [facility]. HE IS BEING TREATED FOR PNEUMONIA DUE TO COVID-19, HYPOXIA, HYPERNATREMIA, AND PROTEIN CALORIE MALNUTRITION. HE HAS A HISTORY OF HTN AND SEIZURE DISORDER. HE IS CURRENTLY UTILIZING THE BIPAP. TODAY, HE IS LYING IN BED ON MORNING ROUNDS. HE AWAKENS TO VERBAL STIMULI. HE CONTINUES WITH COMPLAINTS OF COUGH, SHORTNESS OF BREATH, AND WEAKNESS TODAY, BUT REPORTS SLIGHT IMPROVEMENT IN SYMPTOMS. ON EXAMINATION, HEART IS REGULAR IN RATE AND RHYTHM. BILATERAL LUNGS ARE NOTED WITH DIMINISHED LUNG SOUNDS THROUGHOUT. ABDOMEN IS ROUND, SOFT, AND NON-TENDER WITH NORMAL BOWEL SOUNDS NOTED IN ALL QUADRANTS. HER VITALS THIS MORNING ARE: 97.3-63-18-97%BIPAP-146/64. LABS WERE OBTAINED. ABNORMAL LAB VALUES INCLUDE THE FOLLOWING: WBC 18.3, RBC 2.88, HGB 8.5, HCT 26.0, SODIUM 148, CHLORIDE 113, BUN 23, GLUCOSE 175, CALCIUM 8.0, FERRITIN 808, CRP 91.70, TOTAL PROTEIN 6.1, ALBUMIN 2.4, TSH 3RD GEN 0.139. A CHEST XRAY WAS OBTAINED AND REVEALED: NO SIGNIFICANT CHANGE FROM THE PRIOR EXAMINATION. WE WILL CONTINUE WITH HIS PROCAL, ANTIBIOTICS, REMDESIVIR, NEB TX, AND CURRENT PLAN OF CARE TODAY. OTHERWISE, WE PLAN TO FOLLOW UP WITH AM LABS, CHEST XRAY, AND ABG AND CONTINUE TO MONITOR. - Past Medical Family Social History Past Med/Fam/Surg Hx: No changes since H&P Allergies: Allergies No Known Drug Allergies Allergy (Verified 03/04/17 15:54) - Review of Systems ROS: No change since H&P - Vital Signs and I&O's Vital Signs: Temperature 99.0 F Pulse Rate [Right] 68 Pulse Rate 84 Respiratory Rate 26 Blood Pressure [Left Arm] 115/59 Blood Pressure 157/71 O2 Sat by Pulse Oximetry 97 Intake and Output: Intake & Output 03/03/20 03/04/20 03/05/20 03/06/20 11:59 11:59 11:59 11:59 Intake Total 2730 / 2730 2845 / 2845 3009 / 3009 1149 / 1149 Balance 2730 / 2730 2845 / 2845 3009 / 3009 1149 / 1149 - Physical Exam Oriented: Person, Place Eyes: Normal Ear: Normal Nose: Normal Throat: Normal Respiratory: Generalized, Diminished Cardiovascular: Normal Auscultation: Bowel Sounds: Normal Tenderness: Normal Skin: Decreased Turgur Musculoskeletal: Normal Psychiatric: Normal Mood Description: Calm Affect: Normal Speech Pattern: Unclear - Laboratory and Diagnostics Result Diagrams: 03/05/20 05:20 03/05/20 05:20 Labs: 02/25/20 16:50 Blood Blood Culture - Final 02/25/20 16:45 Blood Blood Culture - Final Laboratory WBC 18.3 X10^3/uL (3.6-10.0) H 03/05/20 05:20 RBC 2.88 X10^6/uL (4.7-6.0) L 03/05/20 05:20 Hgb 8.5 g/dL (13.5-18.0) L 03/05/20 05:20 Hct 26.0 % (42.0-54.0) L 03/05/20 05:20 MCV 90.1 fL (80.0-100.0) 03/05/20 05:20 MCH 29.5 pg (27.0-34.0) 03/05/20 05:20 MCHC 32.8 g/dL (33.0-35.0) L 03/05/20 05:20 RDW 15.1 % (11.6-16.5) 03/05/20 05:20 Plt Count 272 X10^3/uL (150.0-450.0) 03/05/20 05:20 Plt Count Comment Adequate (ADEQUATE) 03/05/20 05:20 MPV 9.3 fL (7.4-11.0) 03/05/20 05:20 Neut % (Auto) 93.6 % (42.0-75.0) H 03/05/20 05:20 Lymph % (Auto) 2.8 % (21.0-51.0) L 03/05/20 05:20 [place] % (Auto) 3.5 % (0.0-13.0) 03/05/20 05:20 Eos % (Auto) 0.0 % (0.9-2.9) L 03/05/20 05:20 Baso % (Auto) 0.1 % (0.2-1.0) L 03/05/20 05:20 Neut # (Auto) 17.1 x10^3/uL (2.2-4.8) H 03/05/20 05:20 Lymph # (Auto) 0.5 X10^3/uL (1.3-2.9) L 03/05/20 05:20 [place] # (Auto) 0.6 x10^3/uL (0.3-0.8) 03/05/20 05:20 Eos # (Auto) 0.0 x10^3/uL (0.0-0.2) 03/05/20 05:20 Baso # (Auto) 0.0 X10^3/uL (0.0-0.1) 03/05/20 05:20 Absolute Nucleated RBC 0.1 /100WBC 03/05/20 05:20 Total Counted 100 03/05/20 05:20 Neutrophils % (Manual) 88 % (39-76) H 03/05/20 05:20 Band Neutrophils % 7 % (0-10) 03/05/20 05:20 Lymphocytes % (Manual) 2 % (13-43) L 03/05/20 05:20 Monocytes % (Manual) 3 % (4-9) L 03/05/20 05:20 Plt Morphology Comment Normal (NORMAL) 03/05/20 05:20 RBC Morphology Normal (NORMAL) 03/05/20 05:20 Hypochromasia Slight A 02/29/20 03:45 Anisocytosis Slight A 02/29/20 03:45 Jaxon Cells Present 02/28/20 03:44 Sample Site Rr 03/05/20 05:00 ABG pH 7.460 (7.35-7.45) H 03/05/20 05:00 ABG pCO2 38.0 mmHg (35.0-45.0) 03/05/20 05:00 ABG pO2 78.0 mmHg (80.0-100.0) L 03/05/20 05:00 ABG HCO3 27.0 mmol/L (22-26) H 03/05/20 05:00 ABG O2 Saturation 96.0 % (90-100) 03/05/20 05:00 ABG Base Excess 3.1 mmol/L (-2.0-2.0) H 03/05/20 05:00 Hansel Test Pos 03/05/20 05:00 A-a Gradient 445.0 mmHg 03/05/20 05:00 FiO2 80.0 03/05/20 05:00 Blood Gas Comments Asif well sw 03/05/20 05:00 Sodium 148 mmol/L (136-145) H 03/05/20 05:20 Corrected Sodium 150 mmol/L (136-145) H 03/05/20 05:20 Potassium 3.6 mmol/L (3.5-5.1) 03/05/20 05:20 Chloride 113 mmol/L (98-107) H 03/05/20 05:20 Carbon Dioxide 26.5 mmol/L (21-32) 03/05/20 05:20 BUN 23 mg/dL (7-18) H 03/05/20 05:20 Creatinine 1.20 mg/dL (0.70-1.30) 03/05/20 05:20 Est GFR (MDRD) Af Amer > 60 (>60) 03/05/20 05:20 Est GFR (MDRD) Non-Af > 60 (>60) 03/05/20 05:20 Glucose 175 mg/dL (65-99) H 03/05/20 05:20 Calcium 8.0 mg/dL (8.5-10.1) L 03/05/20 05:20 Corrected Calcium 9.3 mg/dL (8.5-10.1) 03/05/20 05:20 Magnesium 2.1 mg/dL (1.7-2.9) 02/27/20 03:56 Ferritin 808 ng/mL (26-388) H 03/05/20 05:20 Total Bilirubin 0.40 mg/dL (0.2-1.0) 03/05/20 05:20 AST 31 Units/L (15-37) 03/05/20 05:20 ALT 32 Units/L (12-78) 03/05/20 05:20 Alkaline Phosphatase 73 Units/L (46-116) 03/05/20 05:20 C-Reactive Protein 91.70 mg/L (0-3.0) H 03/05/20 05:20 Total Protein 6.1 g/dL (6.4-8.2) L 03/05/20 05:20 Albumin 2.4 g/dL (3.4-5.0) L 03/05/20 05:20 Globulin 3.7 g/dL (2.5-4.5) 03/05/20 05:20 Albumin/Globulin Ratio 0.6 Ratio (1.1-2.1) L 03/05/20 05:20 Prealbumin 18.5 mg/dL (18-35.7) 03/03/20 04:05 TSH 3rd Generation 0.139 uIU/mL (0.358-3.74) L 03/05/20 05:20 Valproic Acid 3.1 ug/mL (50-100) L 03/05/20 05:20 Phenobarbital 20.5 ug/mL (15-40) 03/05/20 11:05 SARS-CoV-2 (PCR) Positive (NEGATIVE) A 02/25/20 17:10 Blood Type O POSITIVE 02/25/20 18:45 Antibody Screen Negative 02/25/20 18:45 - Plan (1) Pneumonia due to COVID-19 virus Status: Acute (2) Acute respiratory failure with hypoxia Status: Acute (3) Acute on chronic renal failure Status: Acute Qualifiers: Acute renal failure type: unspecified (4) Seizures Status: Chronic (5) Dementia Status: Chronic Qualifiers: Dementia type: unspecified type Dementia behavioral disturbance: without behavioral disturbance Qualified Code(s): F03.90 - Unspecified dementia without behavioral disturbance (6) Hyperlipidemia Status: Chronic
[2020-03-06] MEDS: MUCOMYST (RESPIRATORY USE ONLY) NEB SCH ×4 (00:50→17:20)
[2020-03-06] MEDS: XOPENEX 1.25 MG/3 ML NEBULE NEB SCH ×4 (00:50→17:20)
[2020-03-06] MEDS: SOLU-Medrol 125 MG VIAL IVP SCH ×4 (01:45→18:55)
[2020-03-06] MEDS: BENADRYL INJ 50 MG VIAL IVP SCH ×4 (01:45→18:55)
[2020-03-06] MEDS: NS IV SCH ×4 (02:33→22:26)
[2020-03-06] MEDS: ASCORBIC ACID MULTI IV SCH ×4 (02:33→22:26)
[2020-03-06 06:13] LABS: BASOPHILS # (AUTO) 0.1 X10^3/uL (0.0-0.1); BASOPHILS % (AUTO) 0.3 % (0.2-1.0); EOSINOPHILS % (AUTO) 0.1 % (0.9-2.9); HEMOGLOBIN 9.1 g/dL (13.5-18.0); LYMPHOCYTES # (AUTO) 0.4 X10^3/uL (1.3-2.9); MEAN CORPUSCULAR HEMOGLOBIN 28.9 pg (27.0-34.0); MEAN CORPUSCULAR HGB CONC 32.6 g/dL (33.0-35.0); MEAN CORPUSCULAR VOLUME 88.7 fL (80.0-100.0); MEAN PLATELET VOLUME 8.7 fL (7.4-11.0); MONOCYTES # (AUTO) 0.8 x10^3/uL (0.3-0.8); MONOCYTES % (AUTO) 3.8 % (0.0-13.0); NEUTROPHILS # (AUTO) 20.7 x10^3/uL (2.2-4.8); NEUTROPHILS % (AUTO) 93.8 % (42.0-75.0); PLATELET COUNT 274 X10^3/uL (150.0-450.0); RED BLOOD COUNT 3.15 X10^6/uL (4.7-6.0); RED CELL DISTRIBUTION WIDTH 15.3 % (11.6-16.5); WHITE BLOOD COUNT 22.1 X10^3/uL (3.6-10.0)
[2020-03-06] MEDS: D5W 1000 ML IV 1,000 ML IV SCH ×2 (06:15→18:53)
[2020-03-06] MEDS: ATIVAN INJ 2 MG VIAL IVP SCH ×2 (06:16→17:53)
[2020-03-06] MEDS: ZOSYN VIAL 4.5 GRAMS 4.5 G in NS 100 ML IV + SPIKE MINIBAG* 100 ML IV SCH ×3 (06:16→23:30)
[2020-03-06 06:44] LABS: ALANINE AMINOTRANSFERASE 35 Units/L (12-78); ALBUMIN 2.3 g/dL (3.4-5.0); ALKALINE PHOSPHATASE 76 Units/L (46-116); ASPARTATE AMINO TRANSFERASE 39 Units/L (15-37); BLOOD UREA NITROGEN 21 mg/dL (7-18); CARBON DIOXIDE 27.2 mmol/L (21-32); CHLORIDE 109 mmol/L (98-107); COR CA(FOR HYPOALB) 9.4 mg/dL (8.5-10.1); COR NA(FOR HYPERGLY) 145 mmol/L (136-145); CREATININE 1.11 mg/dL (0.70-1.30); SODIUM 144 mmol/L (136-145); TOTAL PROTEIN 6.4 g/dL (6.4-8.2); eGFR NON BLACK RACES > 60 (>60)
--- NOTE | 2020-03-06 07:54 | RAD ---
HISTORYShort of breathSTUDYCHEST, 1 VIEWCOMPARISONChest film March 05, 2020.FINDINGSThe trachea is midline. The cardiac silhouette is enlarged but stable in size.. The bilateral interstitial infiltrates left greater than right lung base are unchanged from the recent film of March 05. No effusion is observed. The bony thorax is unremarkable.IMPRESSIONStable cardiomegaly and bilateral left greater than right lung base interstitial infiltrates compared to recent film of 05 March and not significantly changed from February 25, 2020 prior films.Electronically signed by: ERIKA ALFARO (Mar 06, 2020 07:54:00)
[2020-03-06 07:59] LABS: BAND NEUTROPHILS % 6 % (0-10); PLATELET MORPHOLOGY COMMENT NORMAL (NORMAL)
[2020-03-06] MEDS: PULMICORT NEB TX 0.5 MG NEB SCH ×2 (08:35→21:06)
[2020-03-06] MEDS ORDERED: SYNTHROID INJ 100 mcg VIAL ONE (08:56)
[2020-03-06] MEDS: PEPCID 20 MG IV PREMIX* 20 MG/50 ML BAG IV SCH (08:59)
[2020-03-06] MEDS ORDERED: SYNTHROID INJ 100 mcg VIAL IM SCH (09:00)
[2020-03-06] MEDS: MORPHINE SULFATE INJ 2 MG INJ IVP PRN (09:01)
[2020-03-06] MEDS: GEODON INJ IM SCH ×2 (09:05→22:28)
[2020-03-06] MEDS: HEPARIN SODIUM INJ 5000 UNITS SC SCH ×2 (09:08→22:28)
[2020-03-06] MEDS: PROTONIX INJ 40 MG VIAL IVP SCH ×2 (09:19→22:30)
[2020-03-06] MEDS: PHENOBARBITAL SODIUM INJ 65 MG VIAL IVP SCH ×2 (09:20→22:30)
[2020-03-06] MEDS: PROCALAMINE 3 % 1,000 ML with MVI INJ (ADULT) 10 ML IV SCH ×2 (11:59)
[2020-03-06] MEDS ORDERED: SOLU-Medrol 40 MG VIAL ONE (13:28)
[2020-03-06] MEDS ORDERED: NS 50 ML IV 50 ML IV ONE ×2 (14:52→21:31)
[2020-03-06] MEDS ORDERED: SOLU-Medrol 125 MG VIAL ONE (17:40)
[2020-03-06] MEDS ORDERED: GEODON INJ IM ONE (21:03)
[2020-03-07] MEDS: XOPENEX 1.25 MG/3 ML NEBULE NEB SCH ×2 (00:50→06:05)
[2020-03-07] MEDS: MUCOMYST (RESPIRATORY USE ONLY) NEB SCH ×2 (00:50→06:05)
[2020-03-07] MEDS: D5W 1000 ML IV 1,000 ML IV SCH (01:26)
[2020-03-07] MEDS: BENADRYL INJ 50 MG VIAL IVP SCH ×2 (01:52→06:09)
[2020-03-07] MEDS: SOLU-Medrol 125 MG VIAL IVP SCH ×2 (01:53→06:12)
[2020-03-07] MEDS: ATIVAN INJ 2 MG VIAL IVP SCH ×3 (03:51→13:13)
[2020-03-07] MEDS: ASCORBIC ACID MULTI IV SCH (03:59)
[2020-03-07] MEDS: NS IV SCH (03:59)
[2020-03-07] MEDS ORDERED: BENADRYL INJ 50 MG VIAL ONE (05:35)
--- NOTE | 2020-03-07 06:07 | RAD ---
HISTORYSOB, COVID, HYPOXIASTUDYCHEST, 1 VIEWCOMPARISONOne day priorTECHNIQUEAP view of the chestFINDINGSCardiac silhouette appear stable. Stable mild bilateral diffuse interstitial opacities. Stable left base consolidation. No pneumothorax.IMPRESSIONNo significant change.Electronically signed by: Chuckie Jacinto (Mar 07, 2020 06:06:28)
[2020-03-07] MEDS: ZOSYN VIAL 4.5 GRAMS 4.5 G in NS 100 ML IV + SPIKE MINIBAG* 100 ML IV SCH (06:12)
[2020-03-07 06:51] LABS: BASOPHILS # (AUTO) 0.1 X10^3/uL (0.0-0.1); BASOPHILS % (AUTO) 0.3 % (0.2-1.0); EOSINOPHILS % (AUTO) 0.1 % (0.9-2.9); HEMATOCRIT 23.8 % (42.0-54.0); HEMOGLOBIN 7.7 g/dL (13.5-18.0); LYMPHOCYTES # (AUTO) 0.4 X10^3/uL (1.3-2.9); LYMPHOCYTES % (AUTO) 2.5 % (21.0-51.0); MEAN CORPUSCULAR HEMOGLOBIN 28.8 pg (27.0-34.0); MEAN CORPUSCULAR HGB CONC 32.4 g/dL (33.0-35.0); MEAN CORPUSCULAR VOLUME 89.1 fL (80.0-100.0); MEAN PLATELET VOLUME 8.9 fL (7.4-11.0); MONOCYTES # (AUTO) 0.6 x10^3/uL (0.3-0.8); MONOCYTES % (AUTO) 3.4 % (0.0-13.0); NEUTROPHILS % (AUTO) 93.7 % (42.0-75.0); PLATELET COUNT 218 X10^3/uL (150.0-450.0); RED BLOOD COUNT 2.67 X10^6/uL (4.7-6.0); RED CELL DISTRIBUTION WIDTH 15.1 % (11.6-16.5); WHITE BLOOD COUNT 18.1 X10^3/uL (3.6-10.0)
[2020-03-07 07:15] LABS: ALANINE AMINOTRANSFERASE 38 Units/L (12-78); ALBUMIN 1.9 g/dL (3.4-5.0); ALKALINE PHOSPHATASE 72 Units/L (46-116); ASPARTATE AMINO TRANSFERASE 39 Units/L (15-37); BLOOD UREA NITROGEN 19 mg/dL (7-18); CALCIUM 7.8 mg/dL (8.5-10.1); CARBON DIOXIDE 26.9 mmol/L (21-32); CHLORIDE 106 mmol/L (98-107); COR CA(FOR HYPOALB) 9.5 mg/dL (8.5-10.1); COR NA(FOR HYPERGLY) 141 mmol/L (136-145); CREATININE 0.96 mg/dL (0.70-1.30); SODIUM 139 mmol/L (136-145); TOTAL PROTEIN 5.8 g/dL (6.4-8.2); eGFR NON BLACK RACES > 60 (>60)
[2020-03-07 08:22] LABS: PLATELET MORPHOLOGY COMMENT NORMAL (NORMAL)
[2020-03-07 08:23] LABS: POIKILOCYTOSIS SLIGHT
[2020-03-07] MEDS ORDERED: SYNTHROID INJ 100 mcg VIAL ONE (08:45)
[2020-03-07] MEDS ORDERED: GEODON INJ IM ONE (08:46)
[2020-03-07] MEDS: PULMICORT NEB TX 0.5 MG NEB SCH (09:08)
[2020-03-07 09:14] LABS: ABG ALLEN TEST POS; ABG BASE EXCESS -0.1 mmol/L (-2.0-2.0); ABG HCO3 25.4 mmol/L (22-26)
[2020-03-07] MEDS ORDERED: HALDOL INJ IVP PRN (12:51)
[2020-03-07] MEDS: MORPHINE SULFATE INJ 2 MG INJ IVP PRN (13:05)
[2020-03-07 14:20] VITALS: BP 143/89
== END 2020-03-07 13:50 | disposition expired | DRG 177 ==
LOC: MED/SURG → OBSVTOIN 16:14 → ICU 02-26 15:18
PROVIDERS: ADMIT Internal Medicine; ATTEND Internal Medicine
DX: E86.0 Dehydration; N17.8 Other acute kidney failure; Z86.73 Personal history of transient ischemic attack (TIA), and cerebral infarction without residual deficits; M19.90 Unspecified osteoarthritis, unspecified site; R26.89 Other abnormalities of gait and mobility; G40.89 Other seizures; J12.89 Other viral pneumonia; I87.2 Venous insufficiency (chronic) (peripheral); L89.151 Pressure ulcer of sacral region, stage 1; U07.1 COVID-19; D64.9 Anemia, unspecified; E87.0 Hyperosmolality and hypernatremia; R79.82 Elevated C-reactive protein (CRP); J44.0 Chronic obstructive pulmonary disease with (acute) lower respiratory infection; F32.1 Major depressive disorder, single episode, moderate; N18.9 Chronic kidney disease, unspecified; Z66 Do not resuscitate; J96.01 Acute respiratory failure with hypoxia; E03.8 Other specified hypothyroidism; F41.8 Other specified anxiety disorders; R79.89 Other specified abnormal findings of blood chemistry; F01.51 Vascular dementia, unspecified severity, with behavioral disturbance